=== PATIENT | male | born 1990 | race African-American/Black ===

== ENCOUNTER 2021-08-19 15:13 | Emergency (ER) | payer OTHER, SELFPAY ==
--- NOTE | ~2021-08-19 | XR_ITS ---
EXAM: XR knee RT min 4V DATE: 08/19/2021 15:40 HISTORY: football injury,pain on medial aspect . COMPARISON: None available. FINDINGS: Normal mineralization. No fracture or dislocation. No lytic or blastic lesion. Joint space s are maintained. No erosion or periosteal change. Soft tissues within normal limits. Moderate volume joint fluid. IMPRESSION: No acute osseous finding in the right knee. Moderate right knee joint effusion. Reviewed, dictated and finalized at location K. IMPRESSION: No acute osseous finding in the right knee. Moderate right knee oj nt effusion.
[2021-08-19 15:18] VITALS: BP 139/85; PULSE 100; RESP 18; TEMP 36.6; O2SAT 97
--- NOTE | 2021-08-19 16:18 | ED.LOWEXIN ---
HPI - Extremity Injury (Lower) General Chief Complaint: Extremity Injury, Lower Stated Complaint: right knee injury Time Seen by Provider: 08/19/21 15:23 History of Present Illness HPI Narrative: Patient is a 31-year-old male who presents to the ER with pain to the right knee. Reports he was playing basketball yesterday when he jumped he felt 3 pops in his knee. Injury occurred before landing. He is able to walk afterwards. Pain improved with ibuprofen. He placed a knee immobilizer on it to help with his discomfort. No numbness or tingling to lower extremity. No additional concerns. Related Data Allergies Allergy/AdvReac Type Severity Reaction Status Date / Time No Known Allergies Allergy Verified 08/19/21 15:21 Review of Systems Musculoskeletal: Musculoskeletal: Reports arthralgias and Reports joint swelling Integumentary/Breasts: Skin/Breast: Reports system reviewed and no additional complaints, except as docu Neurologic: Denies numbness and Denies weakness PMFSH Past Medical History Medical History (Updated 08/19/21 @ 16:26 by Tino Mcghee MD) Healthy adult male Surgical History Surgical History (Updated 08/19/21 @ 16:26 by Tino Mcghee MD) No pertinent past surgical history Exam Narrative: GENERAL: Well-appearing, well-nourished, and in no acute distress. HEAD: Normocephalic, atraumatic. CHEST: Clear to auscultation. No respiratory distress. HEART: Regular rate and rhythm. Normal peripheral pulses. EXTREMITIES: Focused skin assessment of the right lower extremity reveals tenderness along the medial joint line of the knee with mild to moderate effusion. No tenderness over the patella. Varus and valgus stressing does not elicit pain. Patient can only flex to approximately 90 degrees at the knee due to pain. Neurovascular intact distal to the injury. SKIN: Warm, dry, no rash. NEURO: Alert and oriented x3. PSYCH: Normal mood and affect. Course Course Emergency Course: Possible meniscus injury. We will have him continue wearing the immobilizer and follow-up with orthopedic surgery. Discussed treatment plan and patient verbalized understanding. Vital Signs Vital signs: Vital Signs Temperature 97.9 F 08/19/21 15:18 Pulse Rate 100 08/19/21 15:18 Respiratory Rate 18 08/19/21 15:18 Blood Pressure 139/85 08/19/21 15:18 Pulse Oximetry 97 06/05/22 15:18 Oxygen Delivery Room Air 08/19/21 15:18 Temperature 97.9 F 08/19/21 15:18 Pulse Rate 100 08/19/21 15:18 Respiratory Rate 18 08/19/21 15:18 Blood Pressure 139/85 08/19/21 15:18 Pulse Oximetry 97 08/19/21 15:18 Oxygen Delivery Room Air 08/19/21 15:18 MDM - Extremity Injury (Lower) Imaging Data Radiologist's impression: ITS Impressions Knee X-Ray 08/19/21 15:50 IMPRESSION: No acute osseous finding in the right knee. Moderate right knee joint effusion. Discharge Plan Discharge Clinical Impression: Injury of knee Patient Disposition: Home, Self-Care Condition: Stable Instructions: P.R.I.C.E. Treatment (ED), Meniscus Tear (ED) Additional Instructions: Your x-rays do not show any fracture. It is possible you have torn the medial aspect of your meniscus. You should follow-up with orthopedic surgery for further evaluation. Return to the ER if you have new injury, you have chest pain or shortness of breath, you cannot keep down food or water, you have additional concerns. Prescriptions: New naproxen 500 mg tablet 500 mg PO BID Qty: 14 0RF Follow-up/Referrals: David Yadav MD [Physician] - 1 Week
[2021-08-19] MEDS: HYDROcodone/acetaminophen (*CRX) 5-325 MG TABLET 1 TAB PO (16:33)
== END 2021-08-19 16:43 | disposition home or self-care (01) ==
PROVIDERS: Emergency Provider Emergency Medicine
DX: S89.91XA Unspecified injury of right lower leg, initial encounter (principal); Y93.67 Activity, basketball; X50.9XXA Other and unspecified overexertion or strenuous movements or postures, initial encounter
CPT/HCPCS: 73564; 99283; A9270

== ENCOUNTER 2022-11-30 10:34 | Emergency (ER) | payer OTHER, SELFPAY ==
--- NOTE | 2022-11-30 11:05 | ED.MALEGU ---
HPI - Male Genitourinary General Chief complaint: Urogenital-Male Stated complaint: Sti symptoms Time Seen by Provider: 11/30/22 11:05 Source: patient Mode of arrival: ambulatory Limitations: no limitations History of Present Illness HPI Narrative: 32-year-old male presents with complaint tingling to tip of penis and pelvic pressure when urinating. Reports symptoms for approximately the past week. Sexually active with a new partner. History of gonorrhea. Denies penile discharge, dysuria. All systems reviewed and negative except as noted above. Related Data Allergies Allergy/AdvReac Type Severity Reaction Status Date / Time No Known Allergies Allergy Verified 11/30/22 10:53 Review of Systems Review of Systems: CONSTITUTIONAL: Denies fever, chills, or sweats. EYES: Denies visual changes, redness, or discharge. ENT: Denies rhinorrhea, congestion, sore throat, or otalgia. CARDIOVASCULAR: Denies chest pain, palpitations, or edema. RESPIRATORY: Denies cough or dyspnea. GASTROINTESTINAL: Denies abdominal pain, nausea, vomiting, or diarrhea. GENITOURINARY: Denies dysuria or hematuria. Reports pelvic pressure with tingling to tip penis with urination. SKIN: Denies rash or itching. MUSCULOSKELETAL: Denies back pain, joint pain, or myalgia. NEUROLOGIC: Denies headache, numbness, or weakness. PSYCHIATRIC: Denies anxiety or depression. All other systems reviewed are negative, except as documented in HPI. [facility] Past Medical History Medical History (Updated 11/30/22 @ 11:14 by Hellen Kaplan NP) Healthy adult male Surgical History Surgical History (Updated 08/19/21 @ 16:26 by Tino Mcghee MD) No pertinent past surgical history Comments At time of signature, agree with nursing past medical, surgical, social and family history. There is no relevant family history pertinent to the presenting complaint. Exam Narrative: GENERAL: This is a well-nourished, well-developed patient, in no apparent distress. HEAD: normocephalic, atraumatic. EYES: PERRL. Sclera clear/white. Vision is grossly intact. EARS: External ears normal NOSE: External nose normal NECK: Neck supple, non-tender without lymphadenopathy, masses or thyromegaly. CARDIOVASCULAR: Regular rate and rhythm without murmurs, gallops, or rubs. RESPIRATORY: Clear to auscultation. Breath sounds equal bilaterally. No wheezes, rales, or rhonchi. SKIN: warm, Dry, intact with no suspicious lesions or rash, good texture and turgor. NEURO: awake, alert, and oriented to person, place and time. There were no obvious focal neurologic abnormalities. EXTREMITIES: No joint tenderness, effusion, or edema noted. Course Course Level of Care: [facility] Visit Vital Signs Vital signs: Vital Signs Temperature 36.6 C 11/30/22 11:06 Pulse Rate 81 11/30/22 11:06 Respiratory Rate 16 11/30/22 11:06 Blood Pressure 150/97 H 11/30/22 11:06 Pulse Oximetry 98 11/30/22 11:06 Temperature 36.6 C 11/30/22 11:06 Pulse Rate 81 11/30/22 11:06 Respiratory Rate 16 11/30/22 11:06 Blood Pressure 150/97 H 11/30/22 11:06 Pulse Oximetry 98 11/30/22 11:06 Reviewed MDM - Male Genitourinary MDM Narrative Medical decision making narrative: Patient is aware of diagnosis, understands and agrees to treatment plan. Anticipatory guidance given. Patient agrees to follow-up as directed and is aware of reasons to seek care at the emergency department. Portions of this record may have been created with voice recognition software Patient given IM Rocephin at [facility]. Prescribed doxycycline. Educated patient that he must take both antibiotics. He voiced understanding. Lab Data Labs: Urine Glucose Negative Reference Range: Negative Urine Bilirubin Negative Reference Range: Negative Urine Ketone
[2022-11-30 11:06] VITALS: BP 150/97; PULSE 81; RESP 16; TEMP 36.6; O2SAT 98
[2022-11-30] MEDS: cefTRIAXone 500 MG, LIDOCAINE HCL 1% LOCAL INJ 1 ML IM (11:16)
[2022-11-30 15:41] LABS: Trichomonas Vag PCR NOT DETECTED (NOT DETECTE)
[2022-11-30 16:07] LABS: Chlamydia trachomatis NOT DETECTED (NOT DETECTE); Neisseria gonorrhoeae PCR NOT DETECTED (NOT DETECTE)
== END 2022-11-30 11:27 | disposition home or self-care (01) ==
PROVIDERS: Emergency Provider Nurse Practitioner Family
DX: Z20.2 Contact with and (suspected) exposure to infections with a predominantly sexual mode of transmission (principal)
CPT/HCPCS: 81003; 87491; 87591; 87661; 96372; 99213; G0463; J0696

== ENCOUNTER 2024-12-27 09:19 | Emergency (ER) | payer BC, SELFPAY ==
--- NOTE | ~2024-12-27 | XR_ITS ---
EXAMINATION: XR knee LT min 4V, 12/27/2024 10:30 CDT HISTORY: pain/swelling, FELL TODAY COMPARISON: No comparisons available. Findings: Postsurgical changes, no fracture is identified. No significant degenerative changes. Soft tissues unremarkable. Impression: No acute fracture or malalignment. Reviewed, dictated and finalized at location P. Impression: No acute fracture or malalignment.
[2024-12-27 09:27] VITALS: BP 140/94; PULSE 80; RESP 16; TEMP 36.4; O2SAT 97
--- OUTSIDE RECORDS SUMMARY | 2024-12-27 09:46 | XMS_ITS | Clinical Summary ---
Author Organization [facility] Address [address] [place] [address] Phone Care Team Providers Care Physicians And Surgeons Name Role Phone Stas Jiménez MD Unavailable [phone] Bradley Cook MD Primary Care Pro vider Allergies No known active allergies Medications HYDROcodone-santana taminophen (NORCO) 7.5-325 mg per tabletIndicatio ns:Pain Take 1 tablet by mouth every 4 (four) hours as needed for pain 30 tablet 4 Active Additional Information Patient not taking.Reported on 04/26/2024 clotrimazole-be tamethasone (LOTRISONE) cream APPLY TOPICALLY TO THE AFFECTED AREA TWICE DAILY NEEDED Active diclofenac DR (VOLTAREN) 75 mg EC tablet Take 1 tablet (75 mg total) by mouth 2 (two) times a day Take with food, do not mix with other anti-inflammator y medication 60 tablet 4 Active docusate sodium (COLACE) 100 mg capsuleIndicati ons:constipatio n Take 1 capsule (100 mg total) by mouth 2 (two) times a day 20 capsule 4 Active Additional Information Patient not taking.Reported on 04/26/2024 dicyclomine (BENTYL) 20 mg tablet Take 1 tablet (20 mg total) by mouth 2 (two) times a day 20 tablet 4 02/13/20 25 Active Additional Information Patient not taking.Reported on 04/26/[address] (PROTONIX) 40 mg EC tablet Take 1 tablet (40 mg total) by mouth daily 15 tablet 4 Active bismuth subcit T-tapcwOGBOR-ql n (PYLERA) 140-125-125 mg per capsuleIndicati ons:Helicobacte r Pylori Gastritis Take 3 capsules by mouth 2 (two) times a day Active albuterol HFA (PROVENTIL HFA,VENTOLIN HFA,PROAIR HFA) 90 mcg/actuation inhalerIndicati ons:Bronchospas m Prevention Inhale 1-2 puffs every 6 (six) hours as needed for wheezing 1 g 5 08/10/19 26 Active fluticasone propionate (FLONASE) 50 mcg/actuation nasal spray Administer 1 spray into each nostril daily 16 g 5 Active ibuprofen (ADVIL,MOTRIN) 600 mg tablet Take 1 tablet (600 mg total) by mouth every 6 (six) hours as needed for pain 20 tablet 5 Active benzonatate (TESSALON) 100 mg capsuleIndicati ons:Cough Take 1 capsule (100 mg total) by mouth 3 (three) times a day as needed for cough 15 capsule 5 Active Active Problems Problem Noted Date Diagnosed Date Generalized abdominal pain 04/26/2024 Tibialis posterior tendonitis, left 10/14/2023 Sprain of anterior cruciate ligament of left kne e 06/23/2023 Left anterior cruciate ligament tear 06/20/2023 Osteoarthritis of left patellofemoral joint 07/2023 Abdominal gas pain 04/22/2023 Assessment & Plan (04/22/2023 7:08 PM PIPE CLEANER): Moderately severe bloating. He was counseled about appropriate diet especially avoidance of consumption of excessive dairy products, segmental liver vegetables. Printed patient educational material was given. Was also advised to keep a food journal. Constipation 04/22/2023 Assessment & Plan (04/22/2023 7:10 PM PIPE CLEANER): Moderately severe constipation. May be IBS C versus CIC. He was counseled to augment water consumption. MiraLax 17 g b.i.d. is prescribed. He was advised to reduce it to once daily if he starts to have too many loose bowel movements daily. Check TSH. Hyperparathyroidism 12/31/2022 Mild intermittent asthma, uncomplicated 12/12/19 23 Non-alcoholic fatty liver disease 09/18/2022 Assessment & Plan (04/22/2023 7:04 PM PIPE CLEANER): Chronically mild elevated alkaline phosphatase (150). Denies alcohol use. His weight has fluctuated. He was encouraged to continue with reducing diet and exercise. Repeat liver enzymes in 6 months. Assessment & Plan (09/18/2022 12:16 PM CDT): Chronically mild elevated alkaline phosphatase (150). Denies alcohol use. He has already lost about 15 lb in the last few months. He was encouraged to continue with reducing diet and exercise. Check gamma-GT. Repeat liver enzymes in 6 months. Hepatomegaly 09/18/2022 Assessment & Plan (04/22/2023 7:05 PM PIPE CLEANER): Likely due to fatty liver. Morbidly obese. Viral hepatitis profile negative (A, B, C) Counseled to avoid alcohol consumption. Encouraged to lose about 10 -15 lb. Counseled to reduce consumption of red meat and other fatty foods. Assessment & Plan (09/18/2022 12:17 PM CDT): Morbidly obese. Viral hepatitis profile negative (A, B, C) Counseled to avoid alcohol consumption. Encouraged to lose about 10 lb. Counseled to reduce consumption of red meat and other fatty foods. Hx of gonorrhea 12/02/2021 Rupture of anterior cruciate ligament of right k nee 09/04/2021 Sprain of medial collateral ligament of right kn ee 09/04/2021 Acute medial meniscus tear of right knee 022 Acute lateral meniscus tear of right knee 2021 Fracture of tibial plateau 09/04/2021 Closed nondisplaced fracture of condyle of right femur 09/04/2021 Hx of cardiac catheterization, normal, 2017 07/15 Asthma 02/11/2021 Hypercalcemia 02/11/2021 Vitamin D deficiency 06/18/2020 Assessment & Plan (11/13/2022 12:58 PM CDT): Vitamin-D levels ordered Will advise on adjusted dose of levothyroxine accordingly Assessment & Plan (06/18/2020 8:04 AM CDT): Significant deficiency, 25-OH vit d level 11. - Given suspected hyperparathyroidism and hypercalcemia, will supplement judiciously with 800 units daily Primary hyperparathyroidism 06/12/2020 Overview (07/04/2020): Found to have mild hypercalcemia in 05/2020, with normal albumin and no protein gap. iPTH elevated to 90, with low vitamin D and hypercalciuria, consistent with primary hyperparathyroidism. Was referred to endocrinology on discharge from the hospital for further management. Assessment & Plan (12/15/2022 7:52 PM CDT): Pathophysiology of the condition was discussed with the patient. Differential includes parathyroid adenoma versus parathyroid hyperplasia Deleterious effects of hyperparathyroidism on bone and kidney were explained I have requested to repeat PTH, ionized calcium, CMP, 24 hour urine calcium He probably has a component also of secondary hyperparathyroidism from vitamin deficiency. Vitamin-D levels were requested. Imaging studies with bone density and parathyroid SPECT scan were ordered I explained to the patient how the treatment of primary hyperparathyroid would be surgical. Once the results of the workup is available, will refer to endocrine surgeon. Assessment & Plan (06/16/2020 7:23 AM CDT): Pt with consistent mild elevation in serum calcium this admission. PTH elevated at 90, suggestive of primary hyperparathyroidism. No hx of stones, fracture, renal function appears normal. - 24 hour urinary calcium complete ~ 400 - Recommend close outpatient follow-up with endocrine - IVF if symptomatic History of neurosyphilis, ocular, 2020 Assessment & Plan (06/20/2020 8:07 AM CDT): Presented with photopsia and optic disk edema, RPR + with high titer consistent with neurosyphilis. Unclear timing of primary acquisition. Sexually active with multiple partners. No hx of diffuse rash, unclear hx of chancre (never had a penile lesion to his knowledge. - Continue Penicillin G 4,000,000 units Q4 hours x10 days total (06/10 pm - 06/20 pm) - HIV, Hep panel, Urine GC, Chlamydia all negative - ID follow up and repeat RPR in 3-6 months - LP performed, CSF sent with VDRL that was negative - ID and Optho f/u at [place] Tobacco use 06/10/2020 Assessment & Plan (06/10/2020 8:23 PM CDT): - NRT as needed Snoring 07/02/2016 08/15/2022 Essential hypertension 06/10/2016 Hyperlipidemia LDL goal <100 06/06/2016 Marijuana use 06/06/2016 Class 2 severe obesity due t o excess calories with serious comorbidity and body mass index (BMI) of 35.0 to 35.9 in adult 06/06/2016 Assessment & Plan (09/18/2022 12:15 PM CDT): Associated with elevated alkaline phosphatase and fatty liver on CT. Counseled to exercise, change diet and continue to lose weight. Resolved Problems Problem Noted Date Diagnosed Date Resolved Date Left foot pain 06/11/2020 07/31/2021 Assessment & Plan (06/11/2020 11:35 AM CDT): Patient reports several months of intermittent left foot pain that is dull and aches, usually between fourth and fifth digits, migrates occasionally to heel and lateral ankle, occasionally associated with tingling. Relieved with Ibuprofen. - X-ray - Ibuprofen PRN Immunizations Immunization Administration Dates Next Due Tdap 01/16/2015 Surgical History Surgery Date Site/Laterality Comments ANTERIOR CRUCIATE LIGAMENT REPAIR 09/13/2021 Right PARATHYROIDECTOMY ANTERIOR CRUCIATE LIGAMENT REPAIR 07/03/2023 Left Medical History Medical History Date Comments Left foot pain 06/11/2020 Rupture of anterior cruciate ligament of right k nee Sprain of medial collateral ligament of right kn ee Acute medial meniscus tear of right knee Acute lateral meniscus tear of right knee Closed fracture of right tibial plateau Closed nondisplaced fracture of condyle of right femur (HCC) Hyperparathyroidism Rupture of anterior cruciate ligament of left kn ee Enlarged liver Anemia Ankle fracture 2008 Left ankle Family History Medical History Relation Name Comments Hypertension Father Pelon Forrester sr Hypertension Mother Charlene landis Relation Name Status Comments Father Pelon Forrester sr Mother Charlene landis Social History Tobacco Use Types Packs/Day Years Used Date Smoking Tobacco: Former Cigars 2 2019 Smokeless Tobacco: Never Tobacco Cessation:Counseling Given: Not Answered Comments:No longer smoke it Alcohol Use Standard Drinks/Week Comments Not Currently 0 (1 standard drink = 0.6 oz pur e alcohol) AUDIT-C Answer Date Recorded Q1: How often do you have a drink containing alcohol? Never 04/26/2024 Q2: How many drinks containi ng alcohol do you have on a typical day when you are drinking? Patient does not drink Q3: How often do you have si x or more drinks on one occasion? Never 04/26/2024 PHQ-2 Answer Date Recorded PHQ-2 Total Score (If total score is 3 or more points, staff should administer the PHQ-9) 0 08/16/2022 Personal Safety Answer Date Recorded Have you ever been in or are you currently in a harmful physical or emotional relationship or is someone making you feel afraid or unsafe? Denies 08/26/2024 Sex and Gender Information Value Date Recorded Sex Assigned at Not on file Legal Sex Male 11:19 AM PIPE CLEANER Gender Identity Male 04/17/2024 12:19 AM PIPE CLEANER Sexual Orientation Straight 04/17/2024 12 :19 AM PIPE CLEANER Obstetrics History Last Filed Vital Signs Vital Sign Reading Time Taken Comments Blood Pressure 132/71 08/27/2024 1:15 AM CDT Pulse 98 08/27/2024 1:15 AM CDT Temperature 36.8 C (98.3 F) 08/26/2024 10:55 PM CDT Respiratory Rate 14 08/27/2024 1:15 AM CDT Oxygen Saturation 100% 08/27/2024 1:15 AM CDT Inhaled Oxygen Concentration - - Weight 127 kg (280 lb) 08/27/2024 12:30 AM CDT Height 190.5 cm (6' 3) 08/25/2024 2:31 PM CDT Body Mass Index 35 08/25/2024 2:31 PM CDT Plan of Treatment Health Maintenance Due Date Last Done Comments Varicella Vaccines (1 of 2 - 13+ 2-dose series) 2002 Hepatitis B Screening 2007 Pneumococcal vaccine <65 (1 of 2 - PCV) 2008 HPV Vaccines (1 - 3-dose SCDM series) 2016 Regular Well Visit/Exam 18-64 08/02/2022 08/02/2021 Depression Screening 08/17/2023 08/16/2022, 08/03/19 22 Influenza Vaccine (#1) 2024 DTaP/Tdap/Td Vaccine (2 - Td or Tdap) 01/16/202504/2014 Hepatitis C Screening Completed 08/20/2022, 021 Medical Devices Implanted Type Area Weatherization Specialist Device Identifier Shelf Expiration Date Model / Serial / Lot Lifenet Flexigraft 160mm Frozen Block Graft Soft Tissue Achilles Tendon Fatb - [id number] - [id number] Implanted:Qty: 1 on 09/13/2021 by Stas Jiménez MD at [facility] Graft Right: Knee Lifenet 11/22/2025 FATB / [id number] / [id number] [employer] [place] Suture 2-0 5 Juggerstitch Maxbraid Poly Strl Ltxfre [id number] - Sxxxx - [id number] Implanted:Qty: 1 on 09/13/2021 by Stas Jiménez MD at [facility] Other - see comments Right: Knee [employer] 07/26/2026 [id number] / [id number] / [id number] Description:SUTURE [employer] [place] Suture 2-0 5 Juggerstitch Maxbraid Poly Strl Ltxfre [id number] - Sxxxx - [id number] Implanted:Qty: 1 on 09/13/2021 by Stas Jiménez MD at [facility] Other - see comments Right: Knee [employer] 07/15/2025 [id number] / [id number] / [id number] Description:SUTURE [employer] Scp Accuport 11 Ga L120 Mm Side Delivery Cannula Kit Knee Substitute Bone Graft Sterile 414.502 - Sxxxx - [id number] Implanted:Qty: 1 on 09/13/2021 by Stas Jiménez MD at [facility] Other - see comments Right: Knee [employer] 07/21/2023 414.502 / XXXX / [id number] Description:KIT [employer] [place] Suture 2-0 5 Juggerstitch Maxbraid Poly Strl Ltxfre [id number] - Sxxxx - [id number] Implanted:Qty: 1 on 09/13/2021 by Stas Jiménez MD at [facility] Other - see comments Right: Knee [employer] 12/01/2025 [id number] / [id number] / [id number] Description:ANCHOR [employer] [place] Suture 2-0 5 Juggerstitch Maxbraid Poly Strl Ltxfre [id number] - Sxxxx - [id number] Implanted:Qty: 1 on 09/13/2021 by Stas Jiménez MD at [facility] Other - see comments Right: Knee [employer] 07/19/2026 [id number] / [id number] / [id number] Description:ANCHOR [employer] Screw Fastthread Biocomposite Interference 7mm X 20mm Ar-4020c-07 - Sxxxx - [id number] Implanted:Qty: 1 on 09/13/2021 by Stas Jiménez MD at [facility] Screw Right: Knee [employer] 02/13/2025 AR-4020C-07 / XXXX / [id number] [employer] Retroscrew 10mm 20mm Reconstruction Reverse Thread Design Tibia [id number] - Sxxxx - [id number] Implanted:Qty: 1 on 09/13/2021 by Stas Jiménez MD at [facility] Screw Right: Knee [employer] 02/14/2024 AR-1586RB-1 0 / XXXX / [id number] [employer] 6.5mm 30mm Depth José Miguel Step Drill Acl/Pcl Cancellous Groove Low Ar-1356 - Sxxxx - [id number] Implanted:Qty: 1 on 09/13/2021 by Stas Jiménez MD at [facility] Screw Right: Knee [employer] 07/14/2026 AR-1356 / XXXX / [id number] [employer] Implant Menicus Repair Fiberstitch Curved Ar-4570 - Sxxxx - [id number] Implanted:Qty: 1 on 09/13/2021 by Stas Jiménez MD at [facility] Right: Knee [employer] 02/13/2025 AR-4570 / XXXX / [id number] [employer] Implant Menicus Repair Fiberstitch Curved Ar-4570 - Sxxxx - [id number] Implanted:Qty: 1 on 09/13/2021 by Stas Jiménez MD at [facility] Right: Knee [employer] 03/16/2025 AR-4570 / XXXX / [id number] [employer] Screw Interference Antonina Ft Wedge Rnd Compositcp 7.0x30mm [id number] - [id number] Implanted:Qty: 1 on 07/03/2023 by Stas Jiménez MD at [facility] Left: Knee [employer] 03/17/2025 [id number] / / [id number] [employer] [place] Ventix Link Knotless 4.75mm Mach [id number] - [id number] Implanted:Qty: 1 on 07/03/2023 by Stas Jiménez MD at [facility] Left: Knee [employer] 08/14/2025 [id number] / / [id number] [employer] Screw Interference Antonina Th Wedge Briones Plla Cmpstcp 30 [id number] - [id number] Implanted:Qty: 1 on 07/03/2023 by Stas Jiménez MD at [facility] Left: Knee [employer] 02/14/2026 [id number] / / [id number] Lifenet Flexigraft 160mm Frozen Block Graft Soft Tissue Achilles Tendon Fatb - [id number] - [id number] Implanted:Qty: 1 on 07/03/2023 by Stas Jiménez MD at [facility] Left: Knee Lifenet 04/22/2028 FATB / [id number] / Procedures Procedure Name Priority Date/Time Associated Diagnosis Comments HEPATITIS PANEL, ACUTE Routine 08/20/2022 12:53 PM CDT Potential exposure to STD from Last 3 Months or Most Recently Relevant to Health Maintenance Results * Hepatitis panel, acute (08/20/2022 12:53 PM CDT) Hep A IgM Nonreactive Nonreactive [facility] Comment: Interpretive Data: If Hep A IgM Ab is reported as Equivocal, a new sample should be drawn in two weeks for testing. Current interpretive data was last revised on 19. Hep B core IgM Nonreactive Nonreactive [facility] Comment: Interpretive Data If HepB Core IgM Ab is reported as Equivocal, a new sample should be drawn in two weeks for testing. Current interpretive data was last revised on 19. Hep C Ab Nonreactive Nonreactive [facility] Comment: Interpretive Data Nonreactive: Antibodies to HCV not detected. Does NOT exclude the possibility of recent exposure to HCV. Equivocal: Equivocal for HCV antibodies. Supplemental molecular testing will be automatically performed to determine infection status in accordance with current CDC screening recommendations. Reactive: Positive for HCV antibodies. This may represent current or past HCV infection. Supplemental molecular testing will be automatically performed to determine current infection status in accordance with current CDC screening recommendations. Interpretive data was last revised on 2019. HepBsAg Nonreactive Nonreactive [facility] Blood 08/20/2022 12:5 3 PM CDT 08/20/2022 6:54 PM CDT Trung Ventura MD LAB MICROBIOLOGY - GENE RAL ORDERABLES Final Result [facility] [id number] Department [place] [address] from Last 3 Months or Most Recently Relevant to Health Maintenance Insurance [employer] ACCESS ANTHEM ACCESS Advance Directives For more information, please contact: [phone] * Full Code (Latest Code Status on File) Date Activated Date Inactivated Comments 06/10/2020 5:36 PM 06/20/2020 9:33 PM Care Teams Physicians And Surgeons Relationship Specialty Start Date End Date Bradley Cook MD [address] [place] [address] PCP - General Family Medicine 01/17/23 Stas Jiménez MD Surgeon Orthopedic Surgery 09/13/21
--- OUTSIDE RECORDS SUMMARY | 2024-12-27 09:46 | XMS_ITS | Clinical Summary ---
Author Organization [facility] Address [address] [place] [address] [place] [address] Phone Care Team Providers Care Punch Box Tender Name Role Phone Unavailable Primary Care Provider Unavailabl e Allergies No known active allergies Medications cholecalciferol, vitamin D3, 1,000 unit Take 1 Tablet (1,000 Units) by mouth daily. 30 Tablet 02/13/2021 Active Active Problems Problem Noted Date Diagnosed Date Asthma 02/11/2021 Vitamin D deficiency 02/11/2021 Hypercalcemia 02/11/2021 ANSLEY (acute kidney injury) 02/11/2021 Hyperparathyroidism 02/11/2021 Vision changes Resolved Problems Problem Noted Date Diagnosed Date Resolved Date Tobacco use 02/11/2021 02/13/2021 Neurosyphilis 02/11/2021 02/13/2021 Encounters Date Type Department Care Team Description 11/16/2024 External Device Data [facility] ABSTRACTION Provider, Abstract 11/16/2024 External Device Data [facility]CTION Provider, Abstract 11/03/2024 External Device Data [facility]STRACTION Provider, Abstract 09/29/2024 External Device Data [facility]STRACTION Provider, Abstract 09/29/2024 External Device Data [facility]STRACTION Provider, Abstract from Last 3 Months Family History Medical History Relation Name Comments Hypertension Father Hypertension Mother Relation Name Status Comments Father Mother Social History Tobacco Use Types Packs/Day Years Used Date Smoking Tobacco: Former Cigarettes 0.5 10 Alcohol Use Standard Drinks/Week Comments Yes 0 (1 standard drink = 0.6 oz pur e alcohol) Food Insecurity Answer Date Recorded In the past 12 months, have you worried that your food would run out before you had money to buy more? Never true 02/12/2021 In the past 12 months, did y ou run out of food and didn't have money to buy more? Never true 02/12/2021 Transportation Needs Answer Date Record ed In the past 12 months, has l ack of transportation kept you from medical appointments or from getting medications? No 01/16 In the past 12 months, has l ack of transportation kept you from meetings, work, or from getting things needed for daily living? No 02/12/2021 Housing Stability Answer Date Recorded In the last 12 months, was t here a time when you were not able to pay the mortgage or rent on time? No 02/12/2021 Number of Times Moved in the Last Year Not on fi le 02/12/2021 At any time in the past 12 m [facility], were you homeless or living in a prison (including now)? No 02/12/2021 Sex and Gender Information Value Date Recorded Sex Assigned at Not on file Legal Sex Male 11:16 AM CDT Gender Identity Not on file Sexual Orientation Not on file Last Filed Vital Signs Vital Sign Reading Time Taken Comments Blood Pressure 122/76 09/03/2021 10:02 AM CDT Pulse 69 09/03/2021 10:02 AM CDT Temperature 36.7 C (98 F) 09/03/2021 10:02 AM CDT Respiratory Rate 18 09/03/2021 10:02 AM CDT Oxygen Saturation 98% 09/03/2021 10:02 AM CDT Inhaled Oxygen Concentration - - Weight 126.1 kg (278 lb) 09/03/2021 10:02 AM CDT Height 188 cm (6' 2) 09/03/2021 10:02 AM CDT Body Mass Index 35.69 09/03/2021 10:02 AM CDT Plan of Treatment Health Maintenance Due Date Last Done Comments Pre-Diabetes and Diabetes Screening 1989 HEPATITIS B VACCINES (1 of 3 - 19+ 3-dose series) 2008 HPV VACCINES (1 - 3-dose SCDM series) 2016 INFLUENZA VACCINE (#1) 2024 COVID-19 Vaccine ( season) 11/15/202408/2021, 09/25/2021 DTAP/TDAP/TD VACCINES (2 - Td or Tdap) 01/16/2025 [facility] [employer] CHO[employer] Advance Directives For more information, please contact: [phone] * Full Code (Latest Code Status on File) Date Activated Date Inactivated Comments 02/11/2021 7:58 AM 02/12/2021 9:03 PM
--- OUTSIDE RECORDS SUMMARY | 2024-12-27 09:47 | XMS_ITS | Encounter Summary ---
Author Organization [facility] Healthcare Address [address] [facility] [place] [address] Care Team Providers Care Heat Curer Name Role Phone No, Physician Primary Care Provider [phone] Trung Ventura MD Primary Care Provider Stas Jiménez MD Unavailable [phone] rBadley Cook MD Primary Care Pro vider Encounter Details Date Type Department Care Team (Latest Contact Info) Description 06/10/2020 Ophth Exam Ophthalmology Esperanza Shepherd MD [address] [place], [place] [id number] Social History Tobacco Use Types Packs/Day Years Used Date Smoking Tobacco: Every Day Cigarettes 0.3 15 Cigars Sex and Gender Information Value Date Recorded Sex Assigned at Not on file Legal Sex Male 11:19 AM DATA PROCESSING CONSULTANT Gender Identity Male 04/17/2024 12:19 AM DATA PROCESSING CONSULTANT Sexual Orientation Straight 04/17/2024 12 :19 AM DATA PROCESSING CONSULTANT documented as of this encounter Plan of Treatment Not on file documented as of this encounter Visit Diagnoses Not on filedocumented in this encounter Additional Health Concerns Infection Onset Date Last Indicated Resolved Time Exposure, COVID-19 Comment:Added automatically based on COVID19 lab answers indicating exposure risk 05/29/2022 05/29/2022 06/08/2022 3:05 AM C DT COVID: Suspected 05/29/2022 05/29/2022 05/29/2022 12:31 PM CDT COVID: Suspected 09/06/2023 09/06/2023 09/06/2023 1:08 PM CDT COVID: Suspected 08/09/2024 08/09/2024 08/09/2024 1:14 PM CDT Rhino/Enterovirus 08/09/2024 08/09/2024 08/16/2024 7:26 PM CDT documented as of this encounter Eye Exam Visual Acuity Right eye Left eye Near sc 20/20 20/20 Tonometry (Tonopen, 9:34 AM) Right eye Left eye Pressure 19 15 Pupils Dark Light Shape React APD Right eye 4 2 Round Brisk None Left eye 4 2 Round Brisk None Visual El Right eye Left eye Full Full Extraocular Movement Right eye Left eye Full Full Neuro/Psych Oriented x3: Yes Mood/Affect: Normal CN II-XII in tact Dilation Both eyes: 1.0% Mydriacyl, 2 .5% Phenylephrine @ 9:34 AM Color Right eye Left eye Ishihara 02/25 02/25 External Exam Right eye Left eye External Normal Normal Slit Lamp Exam Right eye Left eye Lids/Lashes Normal Normal Conjunctiva/Sclera White and quiet, BAM White an d quiet, BAM Cornea Clear Clear Anterior Chamber Deep and quiet Deep and quiet Iris Round and reactive Round and yuli ctive Lens Clear Clear Vitreous vit syn, 3-5 white c ells, no pigmented cell vit syn, ~5 white cells, 2 pigmented cells Fundus Exam Right eye Left eye Disc Elevated disc margin s with some temporal sparing, Gr 1-2 edema 360 elevation with small fibrous tuft just on superior nerve edge, Gr 2 edema Macula Normal, flat Normal, flat Vessels Normal Normal Periphery Normal, no hemorrhages, no exdua rosalinda subtle small hypopigmented spots superonasally and superiorly, none in posterior pole Care Teams Heat Curer Relationship Specialty Start Date End Date No, Physician PCP - General 06/10/20 08/19/21 Trung Ventura MD [address] [facility] [address] [place] [address] PCP - General Family Medicine 08/20/21 01/16/23 Bradley Cook MD [address] [place] [address] PCP - General Family Medicine 01/17/23 Stas Jiménez MD [address] [facility] [address] [place] [address] Surgeon Orthopedic Surgery 09/13/21 documented as of this encounter
--- OUTSIDE RECORDS SUMMARY | 2024-12-27 09:47 | XMS_ITS | Encounter Summary ---
Author Organization [facility] Address [address] [place] [address] Care Team Providers Care Hl7 Developer Name Role Phone Thierno Weber MD Unavailable Karlos Singh MD Primary Care Provider [phone] Encounter Details Date Type Department Care Team (Late st Contact Info) Description 12/27/2024 Results Follow-Up [facility] - Family Medicine [id number] [place] [address] [address] [place] [address] [place] [address] [facility] [address] [place] [address] Social History Tobacco Use Types Packs/Day Years Used Date Smoking Tobacco: Former Cigarettes 0.3 5 2 012 - 2017 Cigars Smokeless Tobacco: Never Alcohol Use Standard Drinks/Week Comments Yes 0 (1 standard drink = 0.6 oz pur e alcohol) occassional, less than monthly PHQ-2 Answer Date Recorded Patient Health Questionnaire-2 Score 0 12/23/2024 Education Answer Date Recorded What is the highest level of school you have completed or the highest degree you have received? 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 Not on file Not on file Not on file documented as of this encounter Plan of Treatment Upcoming Encounters Date Type Department Care Team (Late st Contact Info) Description 02/07/2025 8:20 AM SURVEY COORDINATOR Office Visit [facility] [address] [place] [address] [place] [address] [facility] [address] [place] [address] 03/03/2025 9:00 AM SURVEY COORDINATOR Office Visit [facility] [address] [place] [id number] [place] [address] [facility] [address] [place] [address] 06/23/2025 11:20 AM CDT Office Visit [facility] [address] [facility] [address] [place] [address] [place] [address] [facility] [address] [place] [address] documented as of this encounter Visit Diagnoses Not on filedocumented in this encounter Care Teams Hl7 Developer Relationship Specialty Start [place] [address] [facility] [address] [place] [address] PCP - General Internal Medicine 12/23/24 [place] [address] [facility] [address] [place] [address] Physical Medicine and Rehabilitation 07/06/24 documented as of this encounter
--- OUTSIDE RECORDS SUMMARY | 2024-12-27 09:47 | XMS_ITS | Clinical Summary ---
Author Organization [facility] Address [address] [facility] [place] [address] Care Team Providers Care House Coordinator Name Role Phone Thierno Weber MD Unavailable [phone] Karlos Singh MD Primary Care Provider [phone] Source Comments [facility],non-owned Affiliates and Associated Physician Practices is amultiple site organization consisting of ambulatory clinics and hospital sitesin [place], [place] and [place]. This disclosure is being madepursuant to the Care Everywhere program and may not contain all information available regarding this patient. Last updated 17.[facility] Allergies No known active allergies Medications * Be aware that medications may not be up to date on this document. Alwaysverify current medications with the patient. albuterol HFA (Proventil; Ventolin; Proair) 108 (90 Base) MCG/ACT inhaler Inhale 1 (one) puff to 2 (two) puffs by mouth every 6 hours as needed 4 Active omeprazole (PriLOSEC) 40 MG capsuleIndicati ons:Acute gastric ulcer without hemorrhage or perforation,Abd ominal pain, unspecified abdominal location Take 1 (one) capsule by mouth 2 times daily, before breakfast and supper 180 capsule 1 5 Active celecoxib (CeleBREX) 100 MG capsuleIndicati ons:Chronic left-sided low back pain without sciatica Take 1 (one) capsule by mouth 2 times daily 60 capsule 1 5 12/24/19 25 Discontinu ed(List Clean-Up) omeprazole (PriLOSEC) 40 MG capsuleIndicati ons:Acute gastric ulcer without hemorrhage or perforation Take 1 (one) capsule by mouth once daily 90 capsule 5 12/24/19 25 Discontinu ed(List Clean-Up) Active Problems Problem Noted Date Diagnosed Date H/O parathyroidectomy 12/23/2024 Chronic midline low back pain without sciatica 1 Primary hyperparathyroidism 12/11/2022 Atypical chest pain 06/06/2016 Hyperlipidemia 06/06/2016 Obesity due to excess calories 06/06/2016 Marijuana abuse 06/06/2016 Resolved Problems Problem Noted Date Diagnosed Date Resolved Date Mild intermittent asthma, uncomplicated 12/11/2022 02/27/2024 Essential hypertension 06/10/201603/12 Encounters Date Type Department Care Team Description 12/27/2024 Results Follow-Up [address] [place] [address] Karlos Singh MD 12/23/2024 11:30 AM CDT Office Visit [address] [place] [address] Karlos Singh MD Prediabetes (Primary Dx); Class 2 obesity due to excess calories without serious comorbidity with body mass index (BMI) of 37.0 to 37.9 in adult; H/O parathyroidectomy; Vitamin D deficiency; Chronic midline low back pain without sciatica; Pure hypercholesterolemia; Primary hyperparathyroidism (HCC) from Last 3 Months Immunizations Immunization Administration Dates Next Due TDAP (7yrs+) 01/16/2015 Family History Medical History Relation Name Comments Hypertension Father Diabetes - Type 2 Maternal Grandmother Hypertension Mother Relation Name Status Comments Father Alive Maternal Grandmother Mother Alive Social History Tobacco Use Types Packs/Day Years Used Date Smoking Tobacco: Former Cigarettes 0.3 5 2 012 - 2016 Cigars Smokeless Tobacco: Never Tobacco Cessation:Counseling Given: Not Answered Alcohol Use Standard Drinks/Week Comments Yes 0 [...] Sex Assigned at Male 03/11/2023 3:03 PM SERVICE OFFICER Legal Sex Male 6:39 AM SERVICE OFFICER Gender Identity Male 03/11/2023 3:03 PM SERVICE OFFICER Sexual Orientation Straight 03/11/2023 3: 03 PM SERVICE OFFICER 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 Not on file Not on file Not on file Last Filed Vital Signs Vital Sign Reading Time Taken Comments Blood Pressure 130/80 12/23/2024 11:34 AM CDT Pulse 86 12/23/2024 11:34 AM CDT Temperature 36.9 C (98.4 F) 12/23/2024 11:34 AM CDT Respiratory Rate 18 12/23/2024 11:3 4 AM CDT Oxygen Saturation 95% 12/23/2024 11: 34 AM CDT Inhaled Oxygen Concentration - - Weight 134.5 kg (296 lb 9.6 oz) 025 11:34 AM CDT Height 190.5 cm (6' 3) 12/23/2024 11:3 4 AM CDT Body Mass Index 37.07 12/23/2024 11:34 AM CDT Plan of Treatment Upcoming Encounters Date Type Department Care Team (Late st Contact Info) Description 02/07/2025 8:20 AM SERVICE OFFICER Office Visit [facility] [address] [place] [address] [place] [address] [place] [address] 03/03/2025 9:00 AM SERVICE OFFICER Office Visit [facility] [place] [address] [place] [address] [place] [address] [place] [address] 06/23/2025 11:20 AM CDT Office Visit [facility] [address] [place] [address] [address] [place] [address] [place] [address] [facility] [address] [place] [address] Health Maintenance Due Date Last Done Comments HEPATITIS B VACCINE (1 of 3 - 19+ 3-dose series) 2008 HPV VACCINE (1 - 3-dose SCDM series) 2016 COVID-19 VACCINE (3 - 2024-2 6 season) 2024 12/20/2021, 09/25/2021 INFLUENZA VACCINE (#1) 2024 DTAP/TDAP/TD VACCINES (2 - T d or Tdap) 01/16/2025 01/16/2015 ZOSTER VACCINE (1 of 2) 2039 HEPATITIS C SCREENING Completed 12/11/2022 , 08/20/2022 HIV SCREENING Completed 12/11/2022 DEPRESSION SCREENING Completed 07/01/2024, 02/27/2024, 12/11/2022 HIB VACCINE Aged Out No longer eligi ble based on patient's age to complete this topic MENINGOCOCCAL (Group B) VACCINE SHARED DECISION-MAKING Aged Out No longer eligible based on patient's age to complete this topic MENINGOCOCCAL GROUPS A/C/Y/W VACCINE Aged Out No longer eligible b ased on patient's age to complete this topic PNEUMOCOCCAL VACCINE Aged Out No long er eligible based on patient's age to complete this topic Procedures Procedure Name Priority Date/Time Associated Diagnosis Comments IRON + TIBC + FERRITIN Routine 12/24/2024 11:47 AM CDT Prediabetes VITAMIN B12 FOLATE PANEL Routine 12/24/2024 11:47 AM CDT Prediabetes HEMOGLOBIN A1C - POINT OF CARE (AMB) Routine 12/23/2024 1:44 PM CDT Prediabetes HEPATITIS C ANTIBODY Routine 12/11/2022 10:17 AM CDT Need for hepatitis C screening test HIV-1 HIV-2 ANTIBODY + HIV P24 AG PANEL Routine 12/11/2022 10:17 AM CDT Encounter for screening for HIV from Last 3 Months or Most Recently Relevant to Health Maintenance Results * IRON + TIBC + FERRITIN (12/24/2024 11:47 AM CDT) TIBC 388 250 - 450 ug/dL [facility] ACCOUNT BILL UIBC 308 111 - 343 ug/dL [facility] ACCOUNT BILL Iron 80 38 - 169 ug/dL [facility] ACCOUNT BILL Iron Saturation 21 15 - 55 % [facility] ACCOUNT BILL Ferritin 111 30 - 400 ng/mL [facility] ACCOUNT BILL Blood BLOOD SPECIMEN / Unknown 12/24/2024 11:47 AM CDT 12/24/2024 Narrative [facility] ACCOUNT BILL - 12/25/2024 8:11 AM CDT Performed at: [address] [id number] [employer] Installer: Isaiah Ramos PhD, Phone: [phone] us Karlos Singh MD LAB - CHEMISTRY ORDERABLES Final Result [facility] ACCOUNT BILL [address] [place] [address] * VITAMIN B12 FOLATE PANEL (12/24/2024 11:47 AM CDT) Vitamin B12 447 213 - 816 pg/mL [facility] ACCOUNT BILL Folate 10.7 7.0 - 31.4 ng/mL [facility] ACCOUNT BILL Blood BLOOD SPECIMEN / Unknown 12/24/2024 11:47 AM CDT 12/24/2024 Narrative [facility] ACCOUNT BILL - 12/24/2024 5:10 PM CDT Performed at: [address] [place] [address] [address] [place] [address] [place], [place] [id number] [employer] He[employer] Installer: Angelo BARBOUR, Phone: [phone] Karlos Singh MD LAB - CHEMISTRY ORDERABLES Final Result [facility] ACCOUNT BILL [address] [place] [address] * HEMOGLOBIN A1C - POINT OF CARE (AMB) (12/23/2024 1:44 PM CDT) [facility] Hemoglobin A1c POCT 6.1 % [facility] Expiration Date 06/20/2026 [facility] Lot # [id number] [facility] QC Verified Yes Yes [facility] Blood BLOOD SPECIMEN / Unknown 12/23/2024 1:44 PM CDT Karlos Signh MD LAB - POINT OF CARE ORDERAB LES Final Result [facility] [address] [place] [address], [facility] [phone] * HIV-1 HIV-2 ANTIBODY + HIV P24 AG PANEL (12/11/2022 10:17 AM CDT) [facility] HIV Screen 4th Generation w Reflex Non Reactive Non Reactive [facility] INSURANCE BILL Comment: HIV Negative HIV-1/HIV-2 antibodies and HIV-1 p24 antigen were NOT detected. There is no laboratory evidence of HIV infection. FASTING Blood BLOOD SPECIMEN / Unknown 12/11/2022 10:17 AM CDT 12/11/2022 Narrative Resulting Agency Comment Lab Testing performed at: [facility] [address] [facility] [phone] Bradley Cook MD LAB - CHEMISTRY ORDERABLES Fi nal Result [facility] INSURANCE BILL [address] [place] [address] * HEPATITIS C ANTIBODY (12/11/2022 10:17 AM CDT) [facility] Hepatitis C Antibody Non Reactive Non Reactive [facility] INSURANCE BILL Comment: HCV antibody alone does not differentiate between previously resolved infection and active infection. Equivocal and Reactive HCV antibody results should be followed up with an HCV RNA test to support the diagnosis of active HCV infection. FASTING Blood BLOOD SPECIMEN / Unknown 12/11/2022 10:17 AM CDT 12/11/2022 Narrative Resulting Agency Comment Lab Testing performed at: [facility] [address] [facility] [phone] Bradley Cook MD LAB - CHEMISTRY ORDERABLES Fi nal Result [facility] INSURANCE BILL [address] [place] [address] from Last 3 Months or Most Recently Relevant to Health Maintenance Insurance [facility] Address: [address] [address] Advance Directives * Full Code (Latest Code Status on File) Date Activated Date Inactivated Comments 06/06/2016 1:48 PM 06/06/2016 8:07 PM * Full Code Date Activated Date Inactivated Comments 06/06/2016 12:15 PM 06/06/2016 1:48 PM Care Teams House Coordinator Relationship Specialty [place] [address] [facility] [address] [place] [address] PCP - General Internal Medicine 12/23/24 [place] [address] [facility] [address] [place] [address] Physical Medicine and Rehabilitation 07/06/24
--- OUTSIDE RECORDS SUMMARY | 2024-12-27 09:47 | XMS_ITS | Encounter Summary ---
Author Organization [facility] Healthcare Address [address] [place] [address] Care Team Providers Care Auto Painter Name Role Phone No, Physician Primary Care Provider [phone] Trung Ventura MD Primary Care Provider Stas Jiménez MD Unavailable [phone] Bradley Cook MD Primary Care Pro vider Encounter Details Date Type Department Care Team (Latest Contact Info) Description 06/15/2020 Ophth Exam Ophthalmology Zarina Perez MD [address] [facility] [address] [place], [place] [id number] Social History Tobacco Use Types Packs/Day Years Used Date Smoking Tobacco: Every Day Cigarettes 0.3 15 Cigars Sex and Gender Information Value Date Recorded Sex Assigned at Not on file Legal Sex Male 11:19 AM DENTAL OFFICE MANAGER Gender Identity Male 04/17/2024 12:19 AM DENTAL OFFICE MANAGER Sexual Orientation Straight 04/17/2024 12 :19 AM DENTAL OFFICE MANAGER documented as of this encounter Plan of [...] eye Near sc 20/20 20/20 Tonometry (Tonopen, 9:35 AM) Right eye Left eye Pressure 16 17 Pupils Dark Light Shape React APD Right eye 4 2 Round Brisk None Left eye 4 2 Ovoid Brisk None Visual El Right eye Left eye Full Full Extraocular Movement Right eye Left eye Full Full Color Right eye Left eye Ishihara External Exam Right eye Left eye External Normal Normal Slit Lamp Exam Right eye Left eye Lids/Lashes Normal Normal Conjunctiva/Sclera White and quiet, BAM White an d quiet, BAM Cornea Clear Clear Anterior Chamber Deep and quiet Deep and quiet Iris Round and reactive Round and yuli ctive Lens Clear Clear Vitreous Normal Normal Fundus Exam Right eye Left eye Disc Elevated disc margin s with some temporal sparing, trace - Gr 1 edema Elevated disc margins with some temporal sparing, trace - Gr 1 edema C/D Ratio 0.3 0.3 Macula Normal, flat Normal, flat Vessels Normal Normal Periphery Normal, no hemorrhages, no exdua rosalinda Normal Care Teams Auto Painter Relationship Specialty Start Date End Date No, Physician PCP - General 06/10/20 08/19/21 Trung Ventura MD [facility] [facility] [address] [place] [address] PCP - General Family Medicine 08/20/21 01/16/23 Bradley Cook MD [address] [place] [address] PCP - General Family Medicine 01/17/23 Stas Jiménez MD [address] [facility] [address] [place] [address] Surgeon Orthopedic Surgery 09/13/21 documented as of this encounter
--- OUTSIDE RECORDS SUMMARY | 2024-12-27 09:47 | XMS_ITS | Encounter Summary ---
Author Organization [facility] Healthcare Address [address] [place] [address] Care Team Providers Care Mold Mechanic Name Role Phone No, Physician Primary Care Provider [phone] Trung Ventura MD Primary Care Provider Stas Jiménez MD Unavailable [phone] Bradley Cook MD Primary Care Pro vider Encounter Details Date Type Department Care Team (Latest Contact Info) Description 06/12/2020 Ophth Exam Ophthalmology Albaro Kitchen MD [address] [place] [address] [address] [place] [address] Social History Tobacco Use Types Packs/Day Years Used Date Smoking Tobacco: Every Day Cigarettes 0.3 15 Cigars Sex and Gender Information Value Date Recorded Sex Assigned at Not on file Legal Sex Male 11:19 AM BOTTOM SCRUBBER Gender Identity Male 04/17/2024 12:19 AM BOTTOM SCRUBBER Sexual Orientation Straight 04/17/2024 12 :19 AM BOTTOM SCRUBBER documented as of this encounter Plan of [...] Left eye Near sc 20/20 20/20 Tonometry (Palpation, 8:12 PM) Right eye Left eye Pressure STP STP Pupils Dark Light Shape React APD Right eye 5 3 Round Brisk - Left eye 5 3 Round Brisk - Visual El (Counting fingers) Right eye Left eye Full Full Extraocular Movement Right eye Left eye Full Full Neuro/Psych Oriented x3: Yes Mood/Affect: Normal Color Right eye Left eye Ishihara External [...] margin s with some temporal sparing, Gr 1 edema 360 elevation with small fibrous tuft just on superior nerve edge, Gr 2 edema Macula Normal, flat Normal, flat Vessels Normal Normal Periphery Normal, no hemorrhages, no exdua rosalinda subtle small hypopigmented spots superonasally and superiorly, none in posterior pole Care Teams Mold Mechanic Relationship Specialty Start Date End Date No, Physician PCP - General 06/10/20 08/19/21 Trung Ventura MD [address] [place] [address] [address] [place] [address] PCP - General Family Medicine 08/20/21 01/16/23 Bradley Cook MD [address] [place] [address] PCP - General Family Medicine 01/17/23 Stas Jiménez MD [address] [facility] [address], [place] [address] Surgeon Orthopedic Surgery 09/13/21 documented as of this encounter
--- OUTSIDE RECORDS SUMMARY | 2024-12-27 09:47 | XMS_ITS | Encounter Summary ---
Author Organization [facility] Address [address] [place] [address] Phone Care Team Providers Care Midwife Name Role Phone No, Physician Primary Care Provider [phone] Trung Ventura MD Primary Care Provider Stas Jiménez MD Unavailable [phone] Bradley Cook MD Primary Care Pro vider Encounter Details Date Type Department Care Team (Late st Contact Info) Description 06/11/2020 Ophth Exam [facility] Medicine Ophthalmology [address] [place] [address] 1[address] [place] [id number] Jesse Sue MD [address] [facility] [phone] [place] [address] Social History Tobacco Use Types Packs/Day Years Used Date Smoking Tobacco: Every Day Cigarettes 0.3 15 Cigars Sex and Gender Information Value Date Recorded Sex Assigned at Not on file Legal Sex Male 11:19 AM CAMPUS RECRUITING COORDINATOR Gender Identity Male 04/17/2024 12:19 AM CAMPUS RECRUITING COORDINATOR Sexual Orientation Straight 04/17/2024 12 :19 AM CAMPUS RECRUITING COORDINATOR documented as of this encounter Plan of [...] eye Near sc 20/20 20/20 Tonometry (Tonopen, 6:16 AM) Right eye Left eye Pressure 17 15 Pupils Dark Light Shape React APD Right eye 4 2 Round Brisk None Left eye 4 2 Round Brisk None Visual El Right eye Left eye Full Full Extraocular Movement Right eye Left eye Full Full Neuro/Psych Oriented x3: Yes Mood/Affect: Normal Color Right eye Left eye Ishihara 02/25 02/25 External Exam Right eye Left eye External Normal Normal Slit Lamp Exam Right eye Left eye Lids/Lashes Normal Normal Conjunctiva/Sclera White and quiet, BAM White an d quiet, BAM Cornea Clear Clear Anterior Chamber Deep and quiet Deep and quiet Iris Round and reactive Round and yuli ctive Lens Clear Clear Care Teams Midwife Relationship Specialty Start Date End Date No, Physician PCP - General 06/10/20 08/19/21 Trung Ventura MD [address] [facility] [address], [place] [address] PCP - General Family Medicine 08/20/21 01/16/23 Bradley Cook MD [address] [place] [address] PCP - General Family Medicine 01/17/23 Stas Jiménez MD [address] [facility] [address] [place] [address] Surgeon Orthopedic Surgery 09/13/21 documented as of this encounter
[2024-12-27 10:17] VITALS: BP 138/93; PULSE 73; RESP 20; O2SAT 98
--- NOTE | 2024-12-27 11:18 | ED_ITS ---
HPI - Extremity Injury (Lower) General Chief Complaint: Extremity Injury, Lower Stated Complaint: left knee swollen, pain Time Seen by Provider: 12/27/24 10:01 Source: patient Mode of arrival: ambulatory Limitations: no limitations History of Present Illness HPI Narrative: Patient is a 34-year-old male who presents the ED with report of left knee pain. Patient reports he fell in his shower 3 weeks ago and landed directly on his left knee. He has had intermittent pain and swelling in his left knee since then. Reports he was kneeling on the ground working yesterday and this aggravated his knee. Reports worsening pain/swelling. He is able to ambulate. He has not taken anything for pain. He reports previous history of ACL repair on that knee. He does have an campaign marketing specialist. Denies numbness. Related Data Allergies Allergy/AdvReac Type Severity Reaction Status Date / Time No Known Allergies Allergy Verified 12/27/24 09:29 Review of Systems Review of Systems: All systems reviewed & are unremarkable except as noted in HPI. All systems reviewed & are unremarkable except as noted in HPI and below PMFSH Past Medical History Medical History Healthy adult male Surgical History Surgical History No pertinent past surgical history Exam Narrative: GENERAL: Well appearing, well-nourished, non-toxic, in no acute distress. HEAD: Normocephalic, atraumatic. RESPIRATORY: Airway patent, respirations nonlabored. CARDIOVASCULAR: Regular rate and rhythm. Pedal pulses intact and easily palpable MUSCULOSKELETAL: Moves all extremities. No gross deformities. Mild diffuse swelling throughout L anterior knee. Mild tenderness throughout superior knee. No swelling/tenderness throughout L lower leg/calf. Sensation intact. SKIN: Warm, dry, normal color. NEURO: A&O X3. Speech clear. Steady gait. No ataxic movements. PSYCHIATRIC: Appropriate mood and affect. Normal interaction. Course Vital Signs Vital signs: Vital Signs Temperature 97.6 F 12/27/24 09:27 Pulse Rate 80 12/27/24 09:27 Respiratory Rate 16 12/27/24 09:27 Blood Pressure 140/94 H 12/27/24 09:27 Pulse Oximetry 97 12/27/24 09:27 Oxygen Delivery Room Air 12/27/24 09:27 Temperature 97.6 F 12/27/24 09:27 Pulse Rate 73 12/27/24 10:17 Respiratory Rate 20 12/27/24 10:17 Blood Pressure 138/93 H 12/27/24 10:17 Pulse Oximetry 98 12/27/24 10:17 Oxygen Delivery Room Air 12/27/24 09:27 MDM - Extremity Injury (Lower) MDM Narrative Medical decision making narrative: Patient?s injury is consistent with musculoskeletal etiology. No signs of neurologic or vascular compromise on physical examination. Compartments are soft without signs of compartment syndrome. XR a left knee negative obtained w/o acute osseous abnormality. No joint effusion. Soft tissues within normal range. Pain is consistent with knee strain, possible internal derangement. Patient is felt to be stable for discharge home and further outpatient management and treatment. Discussed rice therapy, given Tan bandage in the ED. Recommended that patient have follow-up with his campaign marketing specialist for repeat evaluation. Discussed return precautions. He is in agreement plan. Discharged in stable condition. Medical Records Attestation: I reviewed the patient's medical records. Imaging Data Attestation: I personally reviewed and interpreted this imaging study as follows: Radiologist's impression: ITS Impressions Knee X-Ray 12/27/24 10:40 Impression: No acute fracture or malalignment. Discharge Plan Discharge Clinical Impression: Strain of left knee Qualifiers: Encounter type: initial encounter Qualified Code(s): S86.912A - Strain of unspecified muscle(s) and tendon(s) at lower leg level, left leg, initial encounter Patient Disposition: Home Condition: Stable Instructions: Antibiotic Form, Knee Sprain (ED), P.R.I.C.E. Treatment (ED) Additional Instructions: Recommend rest, frequent ice, elevation of left leg whenever possible. Recommend Tylenol as needed for pain. Follow-up with your campaign marketing specialist for further evaluation. Return to the ED if you experience worsening or severe pain, recurrent injury, severe swelling, numbness, or any other symptoms of concern. Patient Language: Eritrean Prescriptions: No Action doxycycline hyclate 100 mg capsule 100 mg PO BID 7 Days Qty: 14 0RF Follow-up/Referrals: Karlos Singh [Other] Time of Disposition: 11:20
--- OUTSIDE RECORDS SUMMARY | 2024-12-27 11:51 | XMS_ITS | Encounter Summary ---
Author Organization [facility] Address [address] [facility] [place] [address] Care Team Providers Care Dry Wall Finisher Name Role Phone Thierno Weber MD Unavailable Karlos Singh MD Primary Care Provider [phone] Encounter Details Date Type Department Care Team (Late st Contact Info) Description 12/27/2024 Results Follow-Up [facility] - Family Medicine [id number] [place] [address] [address] [place] [address] [place] [address] 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 Not on file Not on file documented as of this encounter Plan of Treatment Upcoming Encounters Date Type Department Care Team (Late st Contact Info) Description 02/07/2025 8:20 AM HEALTH EDUCATOR Office Visit [facility] [address] [place] [id number] [place] [address] [facility] [address] [place] [address] 03/03/2025 9:00 AM HEALTH EDUCATOR Office Visit [facility] [address] [place] [id number] [place] [address] [facility] [address] [place] [address] 06/23/2025 11:20 AM CDT Office Visit [facility] [address] [facility] [address] [place] [address] [place] [address] [facility] [address] [place] [address] documented as of this encounter Visit Diagnoses Not on filedocumented in this encounter Care Teams Dry Wall Finisher Relationship Specialty [place] [address] [facility] [address] [place] [address] PCP - General Internal Medicine 12/23/24 [place] [address] [facility] [address] [place] [address] Physical Medicine and Rehabilitation 07/06/24 documented as of this encounter
--- OUTSIDE RECORDS SUMMARY | 2024-12-27 11:51 | XMS_ITS | Encounter Summary ---
Author Organization [facility] Healthcare Address [address] [place] [address] Care Team Providers Care Coal Handling Supervisor Name Role Phone No, Physician Primary Care Provider [phone] Trung Ventura MD Primary Care Provider Stas Jiménez MD Unavailable [phone] Bradley Cook MD Primary Care Pro vider Encounter Details Date Type Department Care Team (Latest Contact Info) Description 06/15/2020 Ophth Exam Ophthalmology Zarina Perez MD [address] [facility] [address] [place], [place] [id number] Social History Tobacco Use Types Packs/Day Years Used Date Smoking Tobacco: Every Day Cigarettes 0.3 15 Cigars Sex and Gender Information Value Date Recorded Sex Assigned at Not on file Legal Sex Male 11:19 AM ECONOMIC CONSULTANT Gender Identity Male 04/17/2024 12:19 AM ECONOMIC CONSULTANT Sexual Orientation Straight 04/17/2024 12 :19 AM ECONOMIC CONSULTANT documented as of this encounter Plan [...] hemorrhages, no exdua rosalinda Normal Care Teams Coal Handling Supervisor Relationship Specialty Start Date End Date No, Physician PCP - General 06/10/20 08/19/21 Trung Ventura MD [facility] [facility] [address] [place] [address] PCP - General Family Medicine 08/20/21 01/16/23 Bradley Cook MD [address] [place] [address] PCP - General Family Medicine 01/17/23 Stas Jiménez MD [address] [facility] [address] [place] [address] Surgeon Orthopedic Surgery 09/13/21 documented as of this encounter
--- OUTSIDE RECORDS SUMMARY | 2024-12-27 11:51 | XMS_ITS | Clinical Summary ---
Author Organization [facility] Address [address] [facility] [place] [address] Care Team Providers Care Chief Cook Name Role Phone Thierno Weber MD Unavailable [phone] Karlos Singh MD Primary Care Provider [phone] Source Comments [facility],non-owned Affiliates and Associated Physician Practices is amultiple site organization consisting of ambulatory clinics and hospital sitesin [place], [place], [place] and [place]. This disclosure is being madepursuant to the Care Everywhere program and may not contain all information available regarding this patient. Last updated 17.[facility] Allergies No known active allergies Medications * [...] Department Care Team Description 12/27/2024 Results Follow-Up [address] [place] [address] Karlos Singh MD 12/23/2024 11:30 AM CDT Office Visit [address] [place] [address] Karlos Singh MD Prediabetes (Primary Dx); Class [...] Sex Assigned at Male 03/11/2023 3:03 PM INHALATION THERAPIST Legal Sex Male 6:39 AM INHALATION THERAPIST Gender Identity Male 03/11/2023 3:03 PM INHALATION THERAPIST Sexual Orientation Straight 03/11/2023 3: 03 PM INHALATION THERAPIST 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 Not on file [...] st Contact Info) Description 02/07/2025 8:20 AM INHALATION THERAPIST Office Visit [facility] [address] [place] [address] [place] [address] [place] [address] 03/03/2025 9:00 AM INHALATION THERAPIST Office Visit [facility] [place] [address] [place] [address] [place] [address] [address] [place] [address] 06/23/2025 11:20 AM CDT Office Visit [facility] [id number] [place] [address] [address] [place] [address] [place] [address] [facility] [address] [place] [address] Health Maintenance Due Date Last [...] - 12/25/2024 8:11 AM CDT Performed at: [address] [id number] Hyperbaric Technician: Isaiah Ramos PhD, Phone: [phone] us Karlos Singh MD LAB - CHEMISTRY ORDERABLES Final Result [facility] ACCOUNT BILL [address] [place] [address] * VITAMIN B12 FOLATE PANEL (12/24/2024 11:47 AM CDT) Vitamin B12 447 213 - 816 pg/mL [facility] ACCOUNT BILL Folate 10.7 7.0 - 31.4 ng/mL [facility] ACCOUNT BILL Blood BLOOD SPECIMEN / Unknown 12/24/2024 11:47 AM CDT 12/24/2024 Narrative [facility] ACCOUNT BILL - 12/24/2024 5:10 PM CDT Performed at: [address] [place] [address] [address] [place], [place] [id number] Hyperbaric Technician: Angelo BARBOUR, Phone: [phone] Karlos Singh MD LAB - CHEMISTRY ORDERABLES Final Result [facility] ACCOUNT BILL [address] [place] [address] * HEMOGLOBIN A1C - POINT OF CARE (AMB) (12/23/2024 1:44 PM CDT) [facility] Hemoglobin A1c POCT 6.1 % [facility] Expiration Date 06/20/2026 [facility] Lot # [id number] [facility] QC Verified Yes Yes [facility] Blood BLOOD SPECIMEN / Unknown 12/23/2024 1:44 PM CDT Karlos Singh MD LAB - POINT OF CARE ORDERAB LES Final Result [facility] [address] [place] [address], [facility] [phone] * HIV-1 HIV-2 ANTIBODY + HIV P24 AG PANEL (12/11/2022 10:17 AM CDT) [facility] HIV Screen 4th Generation w Reflex Non Reactive Non Reactive [facility] INSURANCE BILL Comment: HIV Negative HIV-1/HIV-2 antibodies and HIV-1 p24 antigen were NOT detected. There is no laboratory evidence of HIV infection. FASTING Blood BLOOD SPECIMEN / Unknown 12/11/2022 10:17 AM CDT 12/11/2022 Narrative Resulting Agency Comment Lab Testing performed at: [facility] [address] [facility] [id number] Bradley Cook MD LAB - CHEMISTRY ORDERABLES Fi nal Result [facility] INSURANCE BILL [address] [place] [address] * HEPATITIS C ANTIBODY (12/11/2022 10:17 AM CDT) [facility] Hepatitis C Antibody Non Reactive Non Reactive [...] Resulting Agency Comment Lab Testing performed at: [facility] [address] [facility] [id number] Bradley Cook MD LAB - CHEMISTRY ORDERABLES Fi nal Result [facility] INSURANCE BILL [address] [place] [address] from Last 3 Months or Most Recently Relevant to Health Maintenance Insurance ANTHEM Advance Directives * Full Code (Latest Code Status on File) Date Activated Date Inactivated Comments 06/06/2016 1:48 PM 06/06/2016 8:07 PM * Full Code Date Activated Date Inactivated Comments 06/06/2016 12:15 PM 06/06/2016 1:48 PM Care Teams Chief Cook Relationship Specialty [place] [address] [facility] [address] [place] [address] PCP - General Internal Medicine 12/23/24 [place] [address] [facility] [address] [place] [address] Physical Medicine and Rehabilitation 07/06/24
--- OUTSIDE RECORDS SUMMARY | 2024-12-27 11:51 | XMS_ITS | Clinical Summary ---
Author Organization [facility] Address [address] [place] [address] [place] [address] Phone Care Team Providers Care Utility Specialist Name Role Phone Unavailable Primary Care Provider [...] any time in the past 12 m [facility], were you homeless or living in a retirement (including now)? No 02/12/2021 Sex and Gender [...] (2 - Td or Tdap) 01/16/2025 [facility] [employer] CHOICE Advance Directives For more information, please contact: [phone] * Full Code (Latest Code Status on File) Date Activated Date Inactivated Comments 02/11/2021 7:58 AM 02/12/2021 9:03 PM
--- OUTSIDE RECORDS SUMMARY | 2024-12-27 11:51 | XMS_ITS | Encounter Summary ---
Author Organization [facility] Healthcare Address [address] [place] [address] Care Team Providers Care Airport Representative Name Role Phone No, Physician Primary Care Provider [phone] Trung Ventura MD Primary Care Provider Stas Jiménez MD Unavailable Bradley Cook MD Primary Care Pro vider Encounter Details Date Type Department Care Team (Latest Contact Info) Description 06/12/2020 Ophth Exam Ophthalmology Albaro Kitchen MD [address] [place] [address] [address] [place] [address] Social History Tobacco Use Types Packs/Day Years Used Date Smoking Tobacco: Every Day Cigarettes 0.3 15 Cigars Sex and Gender Information Value Date Recorded Sex Assigned at Not on file Legal Sex Male 11:19 AM REGULATOR OPERATOR Gender Identity Male 04/17/2024 12:19 AM REGULATOR OPERATOR Sexual Orientation Straight 04/17/2024 12 :19 AM REGULATOR OPERATOR documented as of this encounter Plan of [...] superiorly, none in posterior pole Care Teams Airport Representative Relationship Specialty Start Date End Date No, Physician PCP - General 06/10/20 08/19/21 Trung Ventura MD [address] [place] [address] [address] [place] [address] PCP - General Family Medicine 08/20/21 01/16/23 Bradley Cook MD [address] [place] [address] PCP - General Family Medicine 01/17/23 Stas Jiménez MD [address] [facility] [address], [place] [address] Surgeon Orthopedic Surgery 09/13/21 documented as of this encounter
--- OUTSIDE RECORDS SUMMARY | 2024-12-27 11:51 | XMS_ITS | Clinical Summary ---
Author Organization [facility] Address [address] [place] [address] Phone Care Team Providers Care Satellite Installation Technician Name Role Phone Stas Jiménez MD Unavailable [phone] Bradley Cook MD Primary Care Pro vider [...] daily 15 tablet 4 Active bismuth subcit Q-pozpyIJMRQ-zx n (PYLERA) 140-125-125 mg per capsuleIndicati ons:Helicobacte [...] 04/22/2023 Assessment & Plan (04/22/2023 7:08 PM CRIMINAL DEFENSE LAWYER): Moderately severe bloating. He was counseled about appropriate diet especially avoidance of consumption of excessive dairy products, segmental liver vegetables. Printed patient educational material was given. Was also advised to keep a food journal. Constipation 04/22/2023 Assessment & Plan (04/22/2023 7:10 PM CRIMINAL DEFENSE LAWYER): Moderately severe constipation. May be IBS C versus CIC. He was counseled to augment water consumption. MiraLax 17 g b.i.d. is prescribed. He was advised to reduce it to once daily if he starts to have too many loose bowel movements daily. Check TSH. Hyperparathyroidism 12/31/2022 Mild intermittent asthma, uncomplicated 12/12/19 23 Non-alcoholic fatty liver disease 09/18/2022 Assessment & Plan (04/22/2023 7:04 PM CRIMINAL DEFENSE LAWYER): Chronically mild elevated alkaline phosphatase (150). Denies [...] 09/18/2022 Assessment & Plan (04/22/2023 7:05 PM CRIMINAL DEFENSE LAWYER): Likely due to fatty liver. Morbidly obese. [...] on file Legal Sex Male 11:19 AM CRIMINAL DEFENSE LAWYER Gender Identity Male 04/17/2024 12:19 AM CRIMINAL DEFENSE LAWYER Sexual Orientation Straight 04/17/2024 12 :19 AM CRIMINAL DEFENSE LAWYER Obstetrics History Last Filed Vital Signs Vital [...] 08/20/2022, 021 Medical Devices Implanted Type Area Retail Office Associate Device Identifier Shelf Expiration Date Model / Serial / Lot Lifenet Flexigraft 160mm Frozen Block Graft Soft Tissue Achilles Tendon Fatb - [id number] - [id number] Implanted:Qty: 1 on 09/13/2021 by Stas Jiménez MD at [facility] Graft Right: Knee Lifenet 11/22/2025 FATB / [id number] / [id number] [employer] [place] Suture 2-0 5 Juggerstitch Maxbraid Poly Strl Ltxfre [id number] - Sxxxx - [id number] Implanted:Qty: 1 on 09/13/2021 by Stas Jiménez MD at [facility] Other - see comments Right: Knee [employer] 07/26/2026 [id number] / [id number] / [id number] Description:SUTURE [employer] [place] Suture 2-0 5 Juggerstitch Maxbraid Poly Strl Ltxfre [id number] - Sxxxx - [id number] Implanted:Qty: 1 on 09/13/2021 by Stas Jiménez MD at [facility] Other - see comments Right: Knee [employer] 07/15/2025 [id number] / [id number] / [id number] Description:SUTURE [employer] Scp Accuport 11 Ga L120 Mm Side Delivery Cannula Kit Knee Substitute Bone Graft Sterile 414.502 - Sxxxx - [id number] Implanted:Qty: 1 on 09/13/2021 by Stas Jiménez MD at [facility] Other - see comments Right: Knee [employer] 07/21/2023 414.502 / XXXX / [id number] Description:KIT [employer] [place] Suture 2-0 5 Juggerstitch Maxbraid Poly Strl Ltxfre 496284983 - Sxxxx - [id number] Implanted:Qty: 1 on 09/13/2021 by Stas Jiménez MD at [facility] Other - see comments Right: Knee [employer] 12/01/2025 [id number] / XXXX / [id number] Description:ANCHOR [employer] [place] Suture 2-0 5 Juggerstitch Maxbraid Poly Strl Ltxfre [id number] - Sxxxx - [id number] Implanted:Qty: 1 on 09/13/2021 by Stas Jiménez MD at [facility] Other - see comments Right: Knee [employer] 07/19/2026 [id number] / XXXX / [id number] Description:ANCHOR [employer] Screw Fastthread Biocomposite Interference 7mm X 20mm Ar-4020c-07 - Sxxxx - [id number] Implanted:Qty: 1 on 09/13/2021 by Stas Jiménez MD at [facility] Screw Right: Knee [employer] 02/13/2025 AR-4020C-07 / XXXX / [id number] [employer] Retroscrew 10mm 20mm Reconstruction Reverse Thread Design Tibia Pd-5358dp-68 - Sxxxx - [id number] Implanted:Qty: 1 on 09/13/2021 by Stas Jiménez MD at [facility] Screw Right: Knee [employer] 02/14/2024 AR-1586RB-1 0 / XXXX / [id number] [employer] 6.5mm 30mm Depth José Miguel Step Drill Acl/Pcl Cancellous Groove Low Ar-1356 - Sxxxx - [id number] Implanted:Qty: 1 on 09/13/2021 by Stas Jiménez MD at [facility] Screw Right: Knee [employer] 07/14/2026 AR-1356 / XXXX / [id number] [employer] Implant Menicus Repair Fiberstitch Curved Ar-4570 - Sxxxx - [id number] Implanted:Qty: 1 on 09/13/2021 by Stas Jiménez MD at [facility] Right: Knee [employer] 02/13/2025 AR-4570 / XXXX / [id number] [employer] Implant Menicus Repair Fiberstitch Curved Ar-4570 - Sxxxx - [id number] Implanted:Qty: 1 on 09/13/2021 by Stas Jiménez MD at [facility] Right: Knee [employer] 03/16/2025 AR-4570 / XXXX / [id number] [employer] Screw Interference Antonina Ft Wedge Rnd Compositcp 7.0x30mm [id number] - [id number] Implanted:Qty: 1 on 07/03/2023 by Stas Jiménez MD at [facility] Left: Knee [employer] 03/17/2025 [id number] / / [id number] [employer] [place] Ventix Link Knotless 4.75mm Mach [id number] - [id number] Implanted:Qty: 1 on 07/03/2023 by Stas Jiménez MD at [facility] Left: Knee [employer] 08/14/2025 [id number] / / [id number] [employer] Screw Interference Antonina Th Wedge Briones Plla Cmpstcp 30 71d15ma 593381 - [id number] Implanted:Qty: 1 on 07/03/2023 by Stas Jiménez MD at [facility] Left: Knee [employer] 02/14/2026 [id number] / / [id number] Lifenet Flexigraft 160mm Frozen Block Graft Soft Tissue Achilles Tendon Fatb - [id number] - [id number] Implanted:Qty: 1 on 07/03/2023 by Stas Jiménez MD at [facility] Left: Knee Lifenet 04/22/2028 FATB / [id number] / Procedures Procedure Name Priority Date/Time Associated Diagnosis Comments HEPATITIS PANEL, ACUTE Routine 08/20/2022 12:53 PM CDT Potential exposure to STD from Last 3 Months or Most Recently Relevant to Health Maintenance Results * Hepatitis panel, acute (08/20/2022 12:53 PM CDT) Hep A IgM Nonreactive Nonreactive [facility] Comment: Interpretive Data: If Hep A IgM Ab is reported as Equivocal, a new sample should be drawn in two weeks for testing. Current interpretive data was last revised on 19. Hep B core IgM Nonreactive Nonreactive [facility] Comment: Interpretive Data If HepB Core IgM Ab is reported as Equivocal, a new sample should be drawn in two weeks for testing. Current interpretive data was last revised on 19. Hep C Ab Nonreactive Nonreactive [facility] Comment: Interpretive Data Nonreactive: Antibodies to HCV [...] last revised on 2019. HepBsAg Nonreactive Nonreactive [facility] Blood 08/20/2022 12:5 3 PM CDT 08/20/2022 6:54 PM CDT Trung Ventura MD LAB MICROBIOLOGY - GENE RAL ORDERABLES Final Result [facility] [address] Department [place] [address] from Last 3 Months or Most Recently Relevant to Health Maintenance Insurance [employer] ACCESS ANTHEM ACCESS Advance Directives For more information, please contact: [phone] * Full Code (Latest Code Status on File) Date Activated Date Inactivated Comments 06/10/2020 5:36 PM 06/20/2020 9:33 PM Care Teams Satellite Installation Technician Relationship Specialty Start Date End Date Bradley Cook MD [address] [place] [address] PCP - General Family Medicine 01/17/23 Stas Jiménez MD Surgeon Orthopedic Surgery 09/13/21
--- OUTSIDE RECORDS SUMMARY | 2024-12-27 11:51 | XMS_ITS | Encounter Summary ---
Author Organization [facility] Healthcare Address [address] [place] [address] Care Team Providers Care Energy Auditor Name Role Phone No, Physician Primary Care Provider [phone] Trung Ventura MD Primary Care Provider Stas Jiménez MD Unavailable [phone] Bradley Cook MD Primary Care Pro vider Encounter Details Date Type Department Care Team (Latest Contact Info) Description 06/10/2020 Ophth Exam Ophthalmology Esperanza Shepherd MD [address] [place], [place] [id number] Social History Tobacco Use Types Packs/Day Years Used Date Smoking Tobacco: Every Day Cigarettes 0.3 15 Cigars Sex and Gender Information Value Date Recorded Sex Assigned at Not on file Legal Sex Male 11:19 AM STAVE JOINTER Gender Identity Male 04/17/2024 12:19 AM STAVE JOINTER Sexual Orientation Straight 04/17/2024 12 :19 AM STAVE JOINTER documented as of this encounter Plan of [...] superiorly, none in posterior pole Care Teams Energy Auditor Relationship Specialty Start Date End Date No, Physician PCP - General 06/10/20 08/19/21 Trung Ventura MD [address] [facility] [address] [place] [address] PCP - General Family Medicine 08/20/21 01/16/23 Bradley Cook MD [address] [place] [address] PCP - General Family Medicine 01/17/23 Stas Jiménez MD [address] [facility] [address] [place] [address] Surgeon Orthopedic Surgery 09/13/21 documented as of this encounter
--- OUTSIDE RECORDS SUMMARY | 2024-12-27 11:51 | XMS_ITS | Encounter Summary ---
Author Organization [facility] Address [address] [place] [address] Phone Care Team Providers Care Overedger Name Role Phone No, Physician Primary Care Provider [phone] Trung Ventura MD Primary Care Provider Stas Jiménez MD Unavailable [phone] Bradley Cook MD Primary Care Pro vider Encounter Details Date Type Department Care Team (Late st Contact Info) Description 06/11/2020 Ophth Exam [facility] Medicine Ophthalmology [address] [place] [address] 1st [place] [id number] Jesse Sue MD [address] [facility] [phone] [place] [address] Social History Tobacco Use Types Packs/Day Years Used Date Smoking Tobacco: Every Day Cigarettes 0.3 15 Cigars Sex and Gender Information Value Date Recorded Sex Assigned at Not on file Legal Sex Male 11:19 AM GEOTECHNICAL INTERN Gender Identity Male 04/17/2024 12:19 AM GEOTECHNICAL INTERN Sexual Orientation Straight 04/17/2024 12 :19 AM GEOTECHNICAL INTERN documented as of this encounter Plan of [...] yuli ctive Lens Clear Clear Care Teams Overedger Relationship Specialty Start Date End Date No, Physician PCP - General 06/10/20 08/19/21 Trung Ventura MD [address] [facility] [address], [place] [address] PCP - General Family Medicine 08/20/21 01/16/23 Bradley Cook MD [address] [place] [address] PCP - General Family Medicine 01/17/23 Stas Jiménez MD [address] [address] [place] [address] Surgeon Orthopedic Surgery 09/13/21 documented as of this encounter
== END 2024-12-27 11:27 | disposition home or self-care (01) ==
PROVIDERS: Emergency Provider Physician Assistant
DX: S86.912A Strain of unspecified muscle(s) and tendon(s) at lower leg level, left leg, initial encounter (principal); W18.2XXA Fall in (into) shower or empty bathtub, initial encounter
CPT/HCPCS: 73564; 99283

== ENCOUNTER 2025-01-17 04:10 | Emergency (ER) | payer BC, SELFPAY ==
--- OUTSIDE RECORDS SUMMARY | 2022-08-01 09:21 | XMS_ITS | Continuity of Care Document ---
Author Organization [facility] Address [address] 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 Name Role Phone Dylan Corey PT Unavailable Unavailable Procedures Procedure Date Therapeutic Activities Therapeutic Exercise Therapeutic Activities Therapeutic Exercise Therapeutic Activities Neuromuscular Re-Ed Therapeutic Exercise Therapeutic Activities Therapeutic Exercise Therapeutic Activities Neuromuscular Re-Ed Therapeutic Exercise Therapeutic Activities Therapeutic Exercise Therapeutic Activities Neuromuscular Re-Ed Therapeutic Exercise PT Evaluation Low Complexity Therapeutic Activities Therapeutic Exercise Therapeutic Activities Therapeutic Exercise Therapeutic Activities Therapeutic Exercise Therapeutic Activities Therapeutic Exercise Therapeutic Activities Neuromuscular Re-Ed Therapeutic Exercise Therapeutic Activities Therapeutic Exercise Therapeutic Activities Therapeutic Exercise Progress Note Therapeutic Activities Therapeutic Exercise Therapeutic Activities Neuromuscular Re-Ed Therapeutic Exercise Therapeutic Activities Neuromuscular Re-Ed Therapeutic Exercise Therapeutic Activities Neuromuscular Re-Ed Therapeutic Exercise Therapeutic Activities Therapeutic Exercise Therapeutic Activities Therapeutic Exercise Therapeutic Activities Therapeutic Exercise Neuromuscular Re-Ed Therapeutic Activities Therapeutic Exercise Therapeutic Activities Neuromuscular Re-Ed Therapeutic Exercise Therapeutic Activities Therapeutic Exercise Therapeutic Activities Therapeutic Exercise Neuromuscular Re-Ed Therapeutic Activities Therapeutic Exercise Neuromuscular Re-Ed Therapeutic Exercise Neuromuscular Re-Ed Therapeutic Activities Therapeutic Activities Neuromuscular Re-Ed Therapeutic Exercise Therapeutic Activities Neuromuscular Re-Ed Therapeutic Exercise Therapeutic Activities Therapeutic Exercise Neuromuscular Re-Ed Therapeutic Activities Neuromuscular Re-Ed Therapeutic Exercise Neuromuscular Re-Ed Therapeutic Activities Therapeutic Exercise Therapeutic Activities Electrical Stimulation Hot or Cold Pack Therapeutic Exercise Neuromuscular Re-Ed Therapeutic Exercise Neuromuscular Re-Ed Therapeutic Activities Therapeutic Activities Hot or Cold Pack Therapeutic Exercise Neuromuscular Re-Ed Electrical Stimulation Therapeutic Exercise Neuromuscular Re-Ed Therapeutic Activities Electrical Stimulation Hot or Cold Pack Therapeutic Activities Neuromuscular Re-Ed Therapeutic Exercise Hot or Cold Pack Electrical Stimulation Manual Therapy Therapeutic Exercise Neuromuscular Re-Ed Electrical Stimulation Hot or Cold Pack Therapeutic Exercise Neuromuscular Re-Ed Therapeutic Activities Hot or Cold Pack Therapeutic Exercise Therapeutic Activities Hot or Cold Pack Manual Therapy Therapeutic Exercise Manual Therapy Electrical Stimulation Hot or Cold Pack Neuromuscular Re-Ed Hot or Cold Pack Therapeutic Exercise PT Evaluation Low Complexity Manual Therapy Therapeutic Exercise Hot or Cold Pack Advance Directives Directive Yes / No Effective Date File Name No Information Encounters Encounter Description Practice Location Reason(s) For Visit Diagnoses Date Provider Providers Copied on Encounter [facility] [facility], [place], [place], [id number], tel:[phone] [place] No Information Taccola Luke. . [facility], [place], [place], [id number], tel:[phone] Elizabeth No Information Taccola Luke. . Referring Provider: Stas Jiménez S, [address], [place], [address]. tel:[phone] [facility], [place], [place], [address], [place] tel:[phone] [place] No Information Taccola Luke. . Referring Provider: Stas Yin, [address], [place], [address]. tel:[phone] [facility], [address], [place], [place], [address], [place] tel:[phone] [place] No Information Taccola Luke. . Referring Provider: Stas Yin, [address], [place], [address]. tel:[phone] [facility] [address], [place], [place], [address], tel:[phone] [place] No Information Taccola Luke. . Referring Provider: Stas Yin, [address], [place], [address]. tel:[phone] [facility] [address], [place], [place], [address], [place] tel:[phone] Johnson No Information Taccola Luke. . Referring Provider: Stas Yin, [address], [place], [address]. tel:[phone] [facility], [place], [place], [address], [place] tel:[phone] Johnson No Information Taccola Luke. . Referring Provider: Stas Yin, [address], [place], [address]. tel:[phone] [facility], [place], [place], [address], tel:[phone] Johnson No Information Taccola Luke. . Referring Provider: Stas Yin, [address], [place], [address]. tel:[phone] [facility], [place], [place], [address], tel:[phone] [place] No Information Taccola Luke. . Referring Provider: Stas Jiménez S, [address], [place], [address]. tel:[phone] [facility] [address], [place], [place], [address], [place] tel:[phone] Adrian No Information Falsimi Christinea. . Referring Provider: Stas Yin, [address], [place], [address]. tel:[phone] [facility], [place], [place], [address], [place] tel:[phone] Adrian No Information Duarte Bonita. . Referring Provider: Stas Yin, [address], [place], [address]. tel:[phone] [facility], [place], [place], [address], [place] tel:[phone] Adrian No Information Duarte Bonita. . Referring Provider: Stas Yin, [address], [place], [address]. tel:[phone] [facility], [place], [place], [address], [place] tel:[phone] Adrian No Information Duarte Bonita. . Referring Provider: Stas Yin, [address], [place], [address]. tel:[phone] [facility], [place], [place], [address], [place] tel:[phone] Adrian No Information Falduti Aggie. . Referring Provider: Stas Yin, [address], [place], [address]. tel:[phone] [facility] [address], [place], [place], [address], [place] tel:[phone] Adrian No Information Falduti Aggie. . Referring Provider: Stas Yin, [address], [place], [address]. tel:[phone] [facility], [place], [place], [address], [place] tel:[phone] Adrian No Information Felicia Mesa. . Referring Provider: Stas Yin, [address], [place], [address]. tel:[phone] [facility], [place], [place], [address], [place] tel:[phone] Adrian No Information Cameron Hendricks. . Referring Provider: Stas Yin, [address], [place], [address]. tel:[phone] [facility], [place], [place], [address], [place] tel:[phone] Adrian No Information Felicia Mesa. . Referring Provider: Stas Yin, [address], [place], [address]. tel:[phone] [facility], [place], [place], [address], [place] tel:[phone] Adrian No Information Duarte Bonita. . Referring Provider: Stas Yin, [address], [place], [address]. tel:[phone] [facility], [address], [place], [place], [address], [place] tel:[phone] Adrian No Information Cameron Hendricks. . Referring Provider: Stas Yin, [address], [place], [address]. tel:[phone] [facility] [address], [place], [place], [address], [place] tel:[phone] Adrian No Information Cameron Hendricks. . Referring Provider: Stas Yin, [address], [place], [address]. tel:[phone] [facility], [place], [place], [address], [place] tel:[phone] Adrian No Information Duarte Bonita. . Referring Provider: Stas Yin, [address], [place], [address]. tel:[phone] [facility] [address], [place], [place], [address], [place] tel:[phone] Adrian No Information Duarte Bonita. . Referring Provider: Stas Yin, [address], [place], [address]. tel:[phone] [facility], [place], [place], [address], [place] tel:[phone] Adrian No Information Cameron Hendricks. . Referring Provider: Stas Yin, [address], [place], [address]. tel:[phone] [facility], [place], [place], [address], [place] tel:[phone] Adrian No Information Duarte Bonita. . Referring Provider: Stas Yin, [address], [place], [address]. tel:[phone] [facility], [place], [address], [place] tel:[phone] Adrian No Information Duarte Obnita. . Referring Provider: Stas Yin, [address], [place], [address]. tel:[phone] [facility], [place], [place], [address], [place] tel:[phone] Adrian No Information Duarte Bonita. . Referring Provider: Stas Yin, [address], [place], [address]. tel:[phone] [facility], [place], [place], [address], [place] tel:[phone] Adrian No Information Duarte Bonita. . Referring Provider: Stas Yin, [address], [place], [address]. tel:[phone] [facility], [place], [place], [address], [place] tel:[phone] Adrian No Information Duarte Bonita. . Referring Provider: Stas Yin, [address], [place], [address]. tel:[phone] [facility], [place], [place], [address], [place] tel:[phone] Adrian No Information Duarte Bonita. . Referring Provider: Stas Yin, [address], [place], [address]. tel:[phone] [facility], [place], [place], [address], [place] tel:[phone] Adrian No Information Duarte Bonita. . Referring Provider: Stas Yin, [address], [place], [address]. tel:[phone] [facility] [address], [place], [place], [address], [place] tel:[phone] Adrian No Information Duarte Bonita. . Referring Provider: Stas Yin, [address], [place], [address]. tel:[phone] [facility], [place], [place], [address], [place] tel:[phone] Adrian No Information Duarte Bonita. . Referring Provider: Stas Yin, [address], [place], [address]. tel:[phone] [facility], [place], [place], [address], [place] tel:[phone] Adrian No Information Duarte Bonita. . Referring Provider: Stas Yin, [address], [place], [address]. tel:[phone] [facility], [place], [place], [address], [place] tel:[phone] Adrian No Information Duarte Bonita. . Referring Provider: Stas Yin, [address], [place], [address]. tel:[phone] [facility], [place], [place], [address], [place] tel:[phone] Adrian No Information Cameron Hendricks. . Referring Provider: Stas Yin, [address], [place], [address]. tel:[phone] [facility], [place], [place], [address], [place] tel:[phone] Adrian No Information Cameron Hendricks. . Referring Provider: Stas Yin, [address], [place], [address]. tel:[phone] [facility], [place], [place], [address], [place] tel:[phone] Adrian No Information Cameron Hendricks. . Referring Provider: Stas Yin, [address], [place], [address]. tel:[phone] [facility], [place], [place], [address], [place] tel:[phone] Adrian No Information Felicia Mesa. . Referring Provider: Stas Yin, [address], [place], [address]. tel:[phone] [facility], [place], [place], [address], [place] tel:[phone] Adrian No Information Duarte Bonita. . Referring Provider: Stas Yin, [address], [place], [address]. tel:[phone] [facility], [place], [place], [address], [place] tel:[phone] Adrian No Information Duarte Bonita. . Referring Provider: Stas Yin, [address], [place], [address]. tel:[phone] [facility], [address] [facility] [address], [place], [place], [address], tel:[phone] Adrian No Information Duarte Bonita. . Referring Provider: Stas Yin, [address], [place], [address]. tel:[phone] [address], [place], [place], [address], tel:[phone] Adrian No Information Duarte Bonita. . Referring Provider: Stas Yin, [address], [place], [address]. tel:[phone] [facility] [address] [place], [place] [address], [place], [place], [address], tel:[phone] Adrian No Information Duarte Bonita. . Referring Provider: Stas Yin, [address], [place], [address]. tel:[phone] Family History Family Member Type Diagnosis Age At Onset No Information Payers Payer name Insurance type Covered democrat ID Chantel ramon(s) [employer] [id number] Social History Type Description Quantity Date Captured Comments Sex Male Smoking Status No Information Chief Complaint And Reason For Visit No Information Reason For Referral Reason For Referral No Information Plan Of Treatment Date Type Action Status Referral Ordered: Weight management: Referral to physician timeframe: 1 Month. (related to Overweight) ordered Referral Ordered: PCP timeframe: 1 week. (related to Overweight) ordered History Of Present Illness Encounter Date Complaint History Of Prese nt Illness No Information Functional Status Date Functional Assessmen t No Information Instructions Date Instruction Additional Infor lane Dietary needs education Related to Overweight Prescribed activity/exercise edu cation Related to Overweight Assessments Type Assessment Date No Information Patient Care Teams Name Effective Dates (start - stop) Status Members No Information
--- OUTSIDE RECORDS SUMMARY | 2025-01-17 04:13 | XMS_ITS | Encounter Summary ---
Author Organization [facility] Healthcare Address [address] [place] [address] Care Team Providers Care Farm Boss Name Role Phone No, Physician Primary Care Provider [phone] Trung Ventura MD Primary Care Provider Stas Jiménez MD Unavailable [phone] Bradley Cook MD Primary Care Pro vider Encounter Details Date Type Department Care Team (Latest Contact Info) Description 06/12/2020 Ophth Exam Ophthalmology Albaro Kitchen MD [address] [place] [address] [address] [place] [address] Social History Tobacco Use Types Packs/Day Years Used Date Smoking Tobacco: Every Day Cigarettes 0.3 15 Cigars Sex and Gender Information Value Date Recorded Sex Assigned at Not on file Legal Sex Male 11:19 AM PEDIATRICS HOSPITALIST Gender Identity Male 04/17/2024 12:19 AM PEDIATRICS HOSPITALIST Sexual Orientation Straight 04/17/2024 12 :19 AM PEDIATRICS HOSPITALIST documented as of this encounter Plan of [...] superiorly, none in posterior pole Care Teams Farm Boss Relationship Specialty Start Date End Date No, Physician PCP - General 06/10/20 08/19/21 Trung Ventura MD [address] [place] [address] [address] [place] [address] PCP - General Family Medicine 08/20/21 01/16/23 Bradley Cook MD [address] [place] [address] PCP - General Family Medicine 01/17/23 Stas Jiménez MD [address] [facility] [address], [place] [address] Surgeon Orthopedic Surgery 09/13/21 documented as of this encounter
--- OUTSIDE RECORDS SUMMARY | 2025-01-17 04:13 | XMS_ITS | Clinical Summary ---
Author Organization [employer] [facility] Address [address] [place] [address] Phone Care Team Providers Care Administration Internship Name Role Phone Unavailable Primary Care Provider [...] Encounters Date Type Department Care Team Description 01/12/2025 External Device Data STL ABSTRACTION Provider, Abstract 12/31/2024 10:50 AM CDT - 12/31/2024 11:59 PM CDT Hospital Encounter [facility] [address] [address] Stas Jiménez MD Discharge Disposition: Home or Self Care 11/16/2024 External Device Data STL ABSTRACTION Provider, [...] any time in the past [address] [facility], were you homeless or living in a alf (including now)? No 02/12/2021 Sex and Gender [...] 2016 INFLUENZA VACCINE (#1) 2024 COVID-19 Vaccine (3 - season) 11/15/202408/2021, 09/25/2021 DTAP/TDAP/TD VACCINES (2 - Td or Tdap) 01/16/2025 Procedures Procedure Name Priority Date/Time Associated Diagnosis Comments XR KNEE 4+ VW LEFT Routine 12/31/2024 11 :02 AM CDT Pain from Last 3 Months Results * XR KNEE 4+ VW LEFT (12/31/2024 11:02 AM CDT) Anatomical Region Laterality Modality Lower Extremity Computed Radiogr aphy 12/31/2024 11:0 2 AM CDT Impressions 12/31/2024 5:06 PM CDT IMPRESSION: 1. Minimal degenerative changes in the patellofemoral compartment. DICTATION LOCATION: Location 4 Narrative 12/31/2024 5:06 PM CDT XR KNEE 4+ VW LEFT DATE: 12/31/2024 11:02 AM HISTORY: Left knee pain. COMPARISON: None. EXAMINATION: Four views of the left knee. FINDINGS: There are postsurgical changes in the proximal tibia which is likely related to an ACL repair. No acute fracture. No dislocation. Minimal degenerative changes in the lateral aspect of the patellofemoral compartment. No identifiable bone lesion. No joint effusion. Soft tissues are normal. Procedure Note Héctor Sadler MD - 12/31/2024 XR KNEE 4+ VW LEFT DATE: 12/31/2024 11:02 AM HISTORY: Left knee pain. COMPARISON: None. EXAMINATION: Four views of the left knee. FINDINGS: There are postsurgical changes in the proximal tibia which is likely related to an ACL repair. No acute fracture. No dislocation. Minimal degenerative changes in the lateral aspect of the patellofemoral compartment. No identifiable bone lesion. No joint effusion. Soft tissues are normal. IMPRESSION: 1. Minimal degenerative changes in the patellofemoral compartment. DICTATION LOCATION: Location 4 Stas Jiménez MD DIAGNOSTIC IMAGING ORDERAB LES Final Result from Last 3 Months Insurance [employer] [facility] Cl[employer]ure CHOICE [facility] [employer] ACCESS Advance Directives For more information, please contact: [phone] * Full Code (Latest Code Status on File) Date Activated Date Inactivated Comments 02/11/2021 7:58 AM 02/12/2021 9:03 PM
--- OUTSIDE RECORDS SUMMARY | 2025-01-17 04:13 | XMS_ITS | Clinical Summary ---
Author Organization [facility] Address [address] [place] [address] Phone Care Team Providers Care Dry Wall Finisher Name Role Phone Stas Jiménez MD Unavailable [phone] Bradley Cook MD Primary Care Pro vider [...] daily 15 tablet 4 Active bismuth subcit F-vaexvJACGU-mu n (PYLERA) 140-125-125 mg per capsuleIndicati ons:Helicobacte [...] 04/22/2023 Assessment & Plan (04/22/2023 7:08 PM CARD MOUNTER): Moderately severe bloating. He was counseled about appropriate diet especially avoidance of consumption of excessive dairy products, segmental liver vegetables. Printed patient educational material was given. Was also advised to keep a food journal. Constipation 04/22/2023 Assessment & Plan (04/22/2023 7:10 PM CARD MOUNTER): Moderately severe constipation. May be IBS C versus CIC. He was counseled to augment water consumption. MiraLax 17 g b.i.d. is prescribed. He was advised to reduce it to once daily if he starts to have too many loose bowel movements daily. Check TSH. Hyperparathyroidism 12/31/2022 Mild intermittent asthma, uncomplicated 12/12/19 23 Non-alcoholic fatty liver disease 09/18/2022 Assessment & Plan (04/22/2023 7:04 PM CARD MOUNTER): Chronically mild elevated alkaline phosphatase (150). Denies [...] 09/18/2022 Assessment & Plan (04/22/2023 7:05 PM CARD MOUNTER): Likely due to fatty liver. Morbidly obese. [...] on file Legal Sex Male 11:19 AM CARD MOUNTER Gender Identity Male 04/17/2024 12:19 AM CARD MOUNTER Sexual Orientation Straight 04/17/2024 12 :19 AM CARD MOUNTER Last Filed Vital Signs Vital Sign Reading [...] 08/20/2022, 021 Medical Devices Implanted Type Area Sock Liner Device Identifier Shelf Expiration Date Model / Serial / Lot Lifenet Flexigraft 160mm Frozen Block Graft Soft Tissue Achilles Tendon Fatb - [id number] - [id number] Implanted:Qty: 1 on 09/13/2021 by Stas Jiménez MD at [facility] Graft Right: Knee Lifenet 11/22/2025 FATB / [id number] / [id number] [employer] [place] Suture 2-0 5 Juggerstitch Maxbraid Poly Strl Ltxfre [id number] - Sxxxx - [id number] Implanted:Qty: 1 on 09/13/2021 by Stas Jiménez MD at [facility] Other - see comments Right: Knee [employer] 07/26/2026 [id number] / [id number] / [id number] Description:SUTURE [employer] [place] Suture 2-0 5 Juggerstitch Maxbraid Poly Strl Ltxfre [id number] - Sxxxx - [id number] Implanted:Qty: 1 on 09/13/2021 by Stas Jiménez MD at [facility] Other - see comments Right: Knee [employer] 07/15/2025 [id number] / [id number] / [id number] Description:SUTURE [employer] Scp Accuport 11 Ga L120 Mm Side Delivery Cannula Kit Knee Substitute Bone Graft Sterile 414.502 - Sxxxx - [id number] Implanted:Qty: 1 on 09/13/2021 by Stas Jiménez MD at [facility] Other - see comments Right: Knee [employer] 07/21/2023 414.502 / XXXX / [id number] Description:KIT [employer] [place] Suture 2-0 5 Juggerstitch Maxbraid Poly Strl Ltxfre [id number] - Sxxxx - [id number] Implanted:Qty: 1 on 09/13/2021 by Stas Jiménez MD at [facility] Other - see comments Right: Knee [employer] 12/01/2025 [id number] / [id number] / [id number] Description:ANCHOR [employer] [place] Suture 2-0 5 Juggerstitch Maxbraid Poly Strl Ltxfre [id number] - Sxxxx - [id number] Implanted:Qty: 1 on 09/13/2021 by Stas Jiménez MD at [facility] Other - see comments Right: Knee [employer] 07/19/2026 [id number] / [id number] / [id number] Description:ANCHOR [employer] Screw Fastthread Biocomposite Interference 7mm X 20mm Ar-4020c-07 - Sxxxx - [id number] Implanted:Qty: 1 on 09/13/2021 by Stas Jiménez MD at [facility] Screw Right: Knee [employer] 02/13/2025 AR-4020C-07 / XXXX / [id number] [employer] Retroscrew 10mm 20mm Reconstruction Reverse Thread Design Tibia Az-4772bn-07 - Sxxxx - [id number] Implanted:Qty: 1 on 09/13/2021 by Stas Jiménez MD at [facility] Screw Right: Knee [employer] 02/14/2024 AR-1586RB-1 0 / XXXX / [id number] [employer] 6.5mm 30mm Depth José Miguel Step Drill Acl/Pcl Cancellous Groove Low Ar-1356 - Sxxxx - [id number] Implanted:Qty: 1 on 09/13/2021 by Stas Jiménez MD at [facility] Screw Right: Knee [employer] 07/14/2026 AR-1356 / XXXX / [id number] [employer] Implant Menicus Repair Fiberstitch Curved Ar-4570 - Sxxxx - [id number] Implanted:Qty: 1 on 09/13/2021 by Stas Jiménez MD at [facility] Right: Knee [employer] 02/13/2025 AR-4570 / XXXX / [id number] [employer] Implant Menicus Repair Fiberstitch Curved Ar-4570 - Sxxxx - [id number] Implanted:Qty: 1 on 09/13/2021 by Stas Jiménez MD at [facility] Right: Knee [employer] 03/16/2025 AR-4570 / XXXX / [id number] [employer] Screw Interference Antonina Ft Wedge Rnd Compositcp 7.0x30mm [id number] - [id number] Implanted:Qty: 1 on 07/03/2023 by Stas Jiménez MD at [facility] Left: Knee [employer] 03/17/2025 [id number] / / [id number] [employer] [place] Ventix Link Knotless 4.75mm Mach [id number] - [id number] Implanted:Qty: 1 on 07/03/2023 by Stas Jiménez MD at [facility] Left: Knee [employer] 08/14/2025 [id number] / / [id number] [employer] Screw Interference Antonina Th Wedge Briones Plla Cmpstcp 30 [id number] - [id number] Implanted:Qty: 1 on 07/03/2023 by Stas Jiménez MD at [facility] Left: Knee [employer] 02/14/2026 [id number] / / [id number] Lifenet Flexigraft 160mm Frozen Block Graft Soft Tissue Achilles Tendon Fatb - [id number] - [id number] Implanted:Qty: 1 on 07/03/2023 by Stas Jiménez MD at [facility] Left: Knee Lifenet 04/22/2028 FATB / [id number] / Procedures Procedure Name Priority Date/Time Associated Diagnosis Comments HEPATITIS PANEL, ACUTE Routine 08/20/2022 12:53 PM CDT Potential exposure to STD from Last 3 Months or Most Recently Relevant to Health Maintenance Results * Hepatitis panel, acute (08/20/2022 12:53 PM CDT) Hep A IgM Nonreactive Nonreactive [facility] Comment: Interpretive Data: If Hep A IgM Ab is reported as Equivocal, a new sample should be drawn in two weeks for testing. Current interpretive data was last revised on 19. Hep B core IgM Nonreactive Nonreactive [facility] Comment: Interpretive Data If HepB Core IgM Ab is reported as Equivocal, a new sample should be drawn in two weeks for testing. Current interpretive data was last revised on 19. Hep C Ab Nonreactive Nonreactive [facility] Comment: Interpretive Data Nonreactive: Antibodies [...] last revised on 2019. HepBsAg Nonreactive Nonreactive [facility] Blood 08/20/2022 12:5 3 PM CDT 08/20/2022 6:54 PM CDT Trung Ventura MD LAB MICROBIOLOGY - GENE [facility] ORDERABLES Final Result [facility] [address] Department [place] [address] from Last 3 Months or Most Recently Relevant to Health Maintenance Insurance [employer] ACCESS ANTHEM ACCESS Advance Directives For more information, please contact: [phone] * Full Code (Latest Code Status on File) Date Activated Date Inactivated Comments 06/10/2020 5:36 PM 06/20/2020 9:33 PM Care Teams Dry Wall Finisher Relationship Specialty Start Date End Date Bradley Cook MD [address] [place] [address] PCP - General Family Medicine 01/17/23 Stas Jiménez MD Surgeon Orthopedic Surgery 09/13/21
--- OUTSIDE RECORDS SUMMARY | 2025-01-17 04:13 | XMS_ITS | Clinical Summary ---
Author Organization [facility] Address [address] [facility] [place] [address] Care Team Providers Care Otorhinolaryngologist Name Role Phone Thierno Weber MD Unavailable [phone] Karlos Singh MD Primary Care Provider [phone] Source Comments [facility],non-owned Affiliates and Associated Physician Practices is amultiple site organization consisting of ambulatory clinics and hospital sitesin [place], [place], [place] and [place]. This disclosure is being madepursuant to the Care Everywhere program and may not contain all information available regarding this patient. Last updated 17.[facility] Allergies No known active allergies Medications * [...] Department Care Team Description 12/27/2024 Results Follow-Up [address] [address] Karlos Singh MD Results; Update 12/23/2024 11:30 AM CDT Office Visit [address] [address] Karlos Singh MD Prediabetes (Primary Dx); Class [...] 012 - 2017 Cigars Smokeless Tobacco: Never Tobacco Cessation:Counseling Given: [...] Sex Assigned at Male 03/11/2023 3:03 PM ADDING MACHINE SERVICER Legal Sex Male 6:39 AM ADDING MACHINE SERVICER Gender Identity Male 03/11/2023 3:03 PM ADDING MACHINE SERVICER Sexual Orientation Straight 03/11/2023 3: 03 PM ADDING MACHINE SERVICER 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 file Not on file Not [...] st Contact Info) Description 02/07/2025 8:20 AM ADDING MACHINE SERVICER Office Visit [facility] - [address] [place] [address] [place] [address] [place] [address] 03/03/2025 9:00 AM ADDING MACHINE SERVICER Office Visit [facility] - [place] [address] [place] [phone] [place] [address] [place] [address] 06/23/2025 11:20 AM CDT Office Visit [facility] - Family Medicine [address] [facility] [address] [place] [address] [place] [address] [facility] [address] [place] [address] Health Maintenance Due Date Last Done Comments HEPATITIS B VACCINE (1 of 3 - 19+ 3-dose series) 2008 HPV VACCINE (1 - 3-dose SCDM series) 2016 COVID-19 VACCINE (3 - 2024-2 6 season) 2024 12/20/2021, 09/25/2021 INFLUENZA VACCINE (#1) 2024 DTAP/TDAP/TD VACCINES (2 - T d or Tdap) 01/16/2025 01/16/2015 ZOSTER VACCINE (1 of 2) 2039 HEPATITIS C SCREENING Completed 12/11/2022 HIV SCREENING Completed 12/11/2022 DEPRESSION SCREENING Completed [...] Procedure Name Priority Date/Time Associated Diagnosis Comments VITAMIN D 1,25 DIHYDROXY Routine 12/24/2024 11:47 AM CDT Vitamin D deficiency IRON + TIBC + FERRITIN Routine 12/24/2024 [...] - 12/25/2024 8:11 AM CDT Performed at: - [address] [id number] Shipping Point Inspector: Isaiah Ramos PhD, Phone: [phone] Karlos Singh MD LAB - CHEMISTRY ORDERABLES Final Result Performing Organization Address City/State/[facility] Co de Phone Number [facility] ACCOUNT [facility] [address] [place] [address] * VITAMIN D 1,25 DIHYDROXY (12/24/2024 11:47 AM CDT) Calcitriol (1,25 di-OH Vit D) 41.9 24.8 - 81.5 pg/mL [facility] ACCOUNT BILL Blood BLOOD SPECIMEN / Unknown 12/24/2024 11:47 AM CDT 12/24/2024 Narrative [facility] ACCOUNT BILL - 12/27/2024 1:09 PM CDT Performed at: [address] [id number] Shipping Point Inspector: John Moncada MD, Phone: [phone] Karlos Singh MD LAB - CHEMISTRY ORDERABLES Final Result [facility] ACCOUNT BILL [address] [place] [address] * VITAMIN B12 FOLATE PANEL (12/24/2024 11:47 AM CDT) [facility] Vitamin B12 447 213 - 816 pg/mL [facility] ACCOUNT BILL Folate 10.7 7.0 - 31.4 ng/mL [facility] ACCOUNT BILL Blood BLOOD SPECIMEN / Unknown 12/24/2024 11:47 AM CDT 12/24/2024 Narrative [facility] ACCOUNT BILL - 12/24/2024 5:10 PM CDT Performed at: [address] [place] [id number] Shipping Point Inspector: Angelo Hernandez [facility], Phone: [phone] us Karlos Singh MD LAB - CHEMISTRY ORDERABLES Final Result [facility] ACCOUNT BILL [address] [place] [address] * HEMOGLOBIN A1C - POINT OF CARE (AMB) (12/23/2024 1:44 PM CDT) [facility] Hemoglobin A1c POCT 6.1 % [facility] Expiration Date 06/20/2026 [facility] Lot # [id number] [facility] QC Verified Yes Yes [facility] Blood BLOOD SPECIMEN / Unknown 12/23/2024 1:44 PM CDT us Karlos Singh MD LAB - POINT OF CARE ORDERAB LES Final Result [facility] [place] [address] [facility] [address] [place] [address], [facility] [phone] * HIV-1 HIV-2 ANTIBODY + HIV P24 AG PANEL (12/11/2022 10:17 AM CDT) [facility] HIV Screen 4th Generation w Reflex Non Reactive Non Reactive [facility] INSURANCE BILL Comment: HIV Negative HIV-1/HIV-2 antibodies and HIV-1 p24 antigen were NOT detected. There is no laboratory evidence of HIV infection. FASTING Blood BLOOD SPECIMEN / Unknown 12/11/2022 10:17 AM CDT 12/11/2022 Narrative Resulting Agency Comment Lab Testing performed at: [address] [id number] Bradley Cook MD LAB - CHEMISTRY ORDERABLES Fi nal Result Performing Organization Address [facility]/ZIP Co de Phone Number [facility] INSURANCE BILL [address] [place] [address] * HEPATITIS C ANTIBODY (12/11/2022 10:17 AM CDT) [facility] Hepatitis C Antibody Non Reactive Non Reactive [...] Resulting Agency Comment Lab Testing performed at: [address] [id number] Bradley Cook MD LAB - CHEMISTRY ORDERABLES Fi nal Result Performing Organization Address [facility] Co de Phone Number [facility] INSURANCE BILL [address] [place] [address] from Last 3 Months or Most Recently Relevant to Health Maintenance Insurance [employer] Advance Directives * Full Code (Latest Code Status on File) Date Activated Date Inactivated Comments 06/06/2016 1:48 PM 06/06/2016 8:07 PM * Full Code Date Activated Date Inactivated Comments 06/06/2016 12:15 PM 06/06/2016 1:48 PM Care Teams Otorhinolaryngologist Relationship Specialty [place] [address] [phone] PCP - General Internal Medicine 12/23/24 [place] [address] [facility] [address] [place] [address] Physical Medicine and Rehabilitation 07/06/24
--- OUTSIDE RECORDS SUMMARY | 2025-01-17 04:13 | XMS_ITS | Encounter Summary ---
Author Organization [facility] Address [address] [place] [address] Phone Care Team Providers Care Die Equipment Operator Name Role Phone No, Physician Primary Care Provider [phone] Trung Ventura MD Primary Care Provider Stas Jiménez MD Unavailable [phone] Bradley Cook MD Primary Care Pro vider Encounter Details Date Type Department Care Team (Late st Contact Info) Description 06/11/2020 Ophth Exam [facility] Medicine Ophthalmology [address] [place] [address] 1st [place] [phone] Jesse uSe MD [address] [facility] [phone] [place] [address] Social History Tobacco Use Types Packs/Day Years Used Date Smoking Tobacco: Every Day Cigarettes 0.3 15 Cigars Sex and Gender Information Value Date Recorded Sex Assigned at Not on file Legal Sex Male 11:19 AM AUTO MECHANIC APPRENTICE Gender Identity Male 04/17/2024 12:19 AM AUTO MECHANIC APPRENTICE Sexual Orientation Straight 04/17/2024 12 :19 AM AUTO MECHANIC APPRENTICE documented as of this encounter Plan of [...] yuli ctive Lens Clear Clear Care Teams Die Equipment Operator Relationship Specialty Start Date End Date No, Physician PCP - General 06/10/20 08/19/21 Trung Ventura MD [address] [facility] [address], [place] [address] PCP - General Family Medicine 08/20/21 01/16/23 Bradley Cook MD [address] [place] [address] PCP - General Family Medicine 01/17/23 Stas Jiménez MD [address] [facility] [address] [place] [address] Surgeon Orthopedic Surgery 09/13/21 documented as of this encounter
--- OUTSIDE RECORDS SUMMARY | 2025-01-17 04:13 | XMS_ITS | Encounter Summary ---
Author Organization [facility] Address [address] [facility] [place] [address] Care Team Providers Care Varnishing Machine Operator Name Role Phone Thierno Weber MD Unavailable Karlos Singh MD Primary Care Provider [phone] Reason for Visit * Reason Onset Date Comments Results 12/27/2024 Update 12/27/2024 Encounter Details Date Type Department Care Team (Late st Contact Info) Description 12/27/2024 Results Follow-Up [facility] - Family Medicine [id number] [place] [address] [address] [place] [address] [place] [address] [facility] [address] [place] [address] Results; Update Social History Tobacco Use Types Packs/Day Years [...] Sex Assigned at Male 03/11/2023 3:03 PM PROPERTY UTILIZATION OFFICER Legal Sex Male 6:39 AM PROPERTY UTILIZATION OFFICER Gender Identity Male 03/11/2023 3:03 PM PROPERTY UTILIZATION OFFICER Sexual Orientation Straight 03/11/2023 3: 03 PM PROPERTY UTILIZATION OFFICER 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 Not on file Not on file Not on file documented as of this encounter Plan of Treatment Upcoming Encounters Date Type Department Care Team (Late st Contact Info) Description 02/07/2025 8:20 AM PROPERTY UTILIZATION OFFICER Office Visit [facility] - [address] [place] [address] [place] [address] [facility] [address] [place] [address] 03/03/2025 9:00 AM PROPERTY UTILIZATION OFFICER Office Visit [facility] [address] [place] [address] [place] [address] [facility] [address] [place] [address] 06/23/2025 11:20 AM CDT Office Visit [facility] [address] [facility] [address] [place] [address] [place] [address] [facility] [address] [place] [address] documented as of this encounter Visit Diagnoses Not on filedocumented in this encounter Care Teams Varnishing Machine Operator Relationship Specialty [place] [address] [facility] [address] [place] [address] PCP - General Internal Medicine 12/23/24 [place] [address] [facility] [address] [place], [place] [id number] Physical Medicine and Rehabilitation 07/06/24 documented as of this encounter
--- OUTSIDE RECORDS SUMMARY | 2025-01-17 04:13 | XMS_ITS | Encounter Summary ---
Author Organization [facility] Address [address] [facility] [place] [address] Care Team Providers Care Relay Telegrapher Name Role Phone No, Physician Primary Care Provider [phone] Trung Ventura MD Primary Care Provider Stas Jiménez MD Unavailable [phone] Bradley Cook MD Primary Care Pro vider Encounter Details Date Type Department Care Team (Latest Contact Info) Description 06/10/2020 Ophth Exam Ophthalmology Esperanza Shepherd MD [address] [place], [place] [id number] Social History Tobacco Use Types Packs/Day Years Used Date Smoking Tobacco: Every Day Cigarettes 0.3 15 Cigars Sex and Gender Information Value Date Recorded Sex Assigned at Not on file Legal Sex Male 11:19 AM [employer] SALES AGENT Gender Identity Male 04/17/2024 12:19 AM [employer]BER[employer] SALES AGENT Sexual Orientation Straight 04/17/2024 12 :19 AM [employer] MEMBER[employer] SALES AGENT documented as of this encounter Plan of [...] superiorly, none in posterior pole Care Teams Relay Telegrapher Relationship Specialty Start Date End Date No, Physician PCP - General 06/10/20 08/19/21 Trung Ventura MD [address] [facility] [address] [place] [address] PCP - General Family Medicine 08/20/21 01/16/23 Bradley Cook MD [address] [place] [address] PCP - General Family Medicine 01/17/23 Stas Jiménez MD [address] [facility] [address] [place] [address] Surgeon Orthopedic Surgery 09/13/21 documented as of this encounter
--- OUTSIDE RECORDS SUMMARY | 2025-01-17 04:13 | XMS_ITS | Encounter Summary ---
Author Organization [facility] Healthcare Address [address] [place] [address] Care Team Providers Care Parimutuel Cashier Name Role Phone No, Physician Primary Care Provider [phone] Trung Ventura MD Primary Care Provider Stas Jiménez MD Unavailable [phone] Bradley Cook MD Primary Care Pro vider Encounter Details Date Type Department Care Team (Latest Contact Info) Description 06/15/2020 Ophth Exam Ophthalmology Zarina Perez MD [address] [facility] [address] [place], [place] [id number] Social History Tobacco Use Types Packs/Day Years Used Date Smoking Tobacco: Every Day Cigarettes 0.3 15 Cigars Sex and Gender Information Value Date Recorded Sex Assigned at Not on file Legal Sex Male 11:19 AM MANAGEMENT AIDE Gender Identity Male 04/17/2024 12:19 AM MANAGEMENT AIDE Sexual Orientation Straight 04/17/2024 12 :19 AM MANAGEMENT AIDE documented as of this encounter Plan of [...] hemorrhages, no exdua rosalinda Normal Care Teams Parimutuel Cashier Relationship Specialty Start Date End Date No, Physician PCP - General 06/10/20 08/19/21 Trung Ventura MD [facility] [facility] [address] [place] [address] PCP - General Family Medicine 08/20/21 01/16/23 Bradley Cook MD [address] [place] [address] PCP - General Family Medicine 01/17/23 Stas Jiménez MD [address] [facility] [address] [place] [address] Surgeon Orthopedic Surgery 09/13/21 documented as of this encounter
--- NOTE | 2025-01-17 05:48 | ED.BACK ---
HPI - Back Pain/Injury General Chief Complaint: Back Pain/Injury Stated Complaint: BACK PAIN X 2D Time Seen by Provider: 01/17/25 05:18 History of Present Illness HPI Narrative: 34-year-old male with history of peptic ulcer disease presenting to the emergency department with upper thoracic back pain and left-sided scapular pain. States he has had injuries therefore and previous is told was secondary to dehydration. No surgeries. States he has tried topical lidocaine and oral Tylenol with improvement but pain recurs. Trying topical massage was with some improvement. No other pain and pain is not exacerbated by movement or exertion. No midline back pain or contralateral right-sided back pain. No low back pain. No traumatic injuries recently. Related Data Allergies Allergy/AdvReac Type Severity Reaction Status Date / Time NSAIDS (Non-Steroidal AdvReac Ulcers Verified 01/17/25 04:11 Anti-Inflamma Review of Systems Review of Systems: As reviewed above in HPI [facility] Past Medical History Medical History Healthy adult male Surgical History Surgical History No pertinent past surgical history Exam Narrative: GENERAL: [Well-appearing, well-nourished, and in no acute distress.] HEAD: [Normocephalic, atraumatic.] EYES: [PERRLA and EOMI.] ENT: Nares clear, no rhinorrhea or epistaxis. Mucous membranes moist. NECK: Supple. CHEST: Clear to auscultation. No respiratory distress. Posterior scapular tenderness near the midline spine without any step-offs deformities. No overlying skin deformity or discoloration. HEART: [Regular rate and rhythm]. No murmur heard. [Normal peripheral pulses.] ABDOMEN: [Soft, nondistended], [nontender], [No rigidity or guarding] EXTREMITIES: Normal range of motion. No extremity edema. Normal range of motion of the extremities did not elicit any pain. Ambulatory. SKIN: Warm, dry, no rash. NEURO: [No focal deficits]. Alert and oriented [x3.] PSYCH: [Normal mood and affect.] Course Vital Signs Vital signs: Vital Signs Pulse Rate 82 01/17/25 06:10 Respiratory Rate 16 01/17/25 06:10 Blood Pressure 128/80 11/03/25 06:10 Pulse Oximetry 100 01/17/25 06:10 Pulse Rate 82 01/17/25 06:10 Respiratory Rate 16 01/17/25 06:10 Blood Pressure 128/80 01/17/25 06:10 Pulse Oximetry 100 01/17/25 06:10 MDM - Back Pain/Injury MDM Narrative Medical decision making narrative: 34-year-old male with history of peptic ulcer disease presenting to the emergency department with upper thoracic back pain and left-sided scapular pain. States he has had injuries therefore and previous is told was secondary to dehydration. No surgeries. States he has tried topical lidocaine and oral Tylenol with improvement but pain recurs. Trying topical massage was with some improvement. No other pain and pain is not exacerbated by movement or exertion. No midline back pain or contralateral right-sided back pain. No low back pain. No traumatic injuries recently. Posterior scapular tenderness near the midline spine without any step-offs deformities. No overlying skin deformity or discoloration. Patient has normal vital signs and symptoms consistent with musculoskeletal back/thoracic scapular pain. Given Robaxin Tylenol and tramadol and re-evaluated. No indications for advanced imaging at this time. Basic laboratory studies obtained as patient thinks he is in dehydrated causing some of his symptoms. No leukocytosis or anemia. Normal platelet count. Electrolytes are all normal. No renal dysfunction. Normal glucose. Patient re-evaluated and felt significant improvement. Will be discharged home with a combination regimen for his back pain and safe for discharge at this time. Medical Records Attestation: I reviewed the patient's medical records. Lab Data Attestation: I reviewed the patient's lab results. 01/17/25 06:42 01/17/25 06:42 Labs: Lab Results 01/17/25 Range/Units 06:42 WBC 9.7 (4.5-10.0) K/mm3 RBC 5.20 (4.6-6.20) M/mm3 Hgb 14.2 (14.0-18.0) g/dL Hct 44.0 (42.0-52.0) % MCV 84.6 (80-100) fl MCH 27.3 (26-34) pg MCHC 32.3 (32-36) g/dl RDW 13.2 (11.5-14.5) % Plt Count 286 (150-375) k/mm3 MPV 10.3 (7.4-10.4) fl Immature Gran % (Auto) 0.5 (0-0.5) % Neut % (Auto) 60.6 (45.5-73.1) % Lymph % (Auto) 25.9 (18.3-44.2) % [place] % (Auto) 9.0 H (2.6-8.5) % Eos % (Auto) 3.6 (0-4.4) % Baso % (Auto) 0.4 (0.2-1.2) % Lymph # (Auto) 2.50 (0.9-3.2) K/mm3 [place] # (Auto) 0.9 H (0.1-0.6) K/mm3 Eos # (Auto) 0.4 H (0-0.3) K/mm3 Baso # (Auto) 0.0 (0.0-0.1) K/mm3 Abs Immat Gran (auto) 0.05 H (0.00-0.031) K/mm3 Absolute Neuts (auto) 5.9 (1.3-6.7) K/mm3 Absolute Nucleated RBC 0.000 (0.0-0.012) K/mm3 Nucleated RBC % 0.0 (0.0-0.2) % Sodium 135 L (137-145) mmol/L Potassium 4.2 (3.4-5.0) mmol/L Chloride 101 (98-107) mmol/L Carbon Dioxide 26 (22-30) mmol/L Anion Gap 8 (4-12) mmol/L BUN 17 (9-20) mg/dL Creatinine 1.09 (0.7-1.3) mg/dL Estim Creat Clear Calc 123 ml/min Estimated GFR > 60 (59 - ) Glucose 112 H (65-110) mg/dL Calcium 9.1 (8.4-10.2) mg/dL Discharge Plan Discharge Clinical Impression: Spasm of thoracic back muscle Patient Disposition: Home Condition: Stable Instructions: Antibiotic Form, Thoracic Back Strain (ED) Additional Instructions: All of your laboratory studies are normal. No signs of dehydration or infection. Normal electrolytes. We will send you home with a combination medications to try for your back pain and spasm. Follow-up with your primary doctor. Return with any emergencies Patient Language: Swazi Prescriptions: New tramadol 50 mg tablet 50 mg PO Q6H PRN (Reason: pain) Qty: 14 0RF methocarbamol 750 mg tablet 750 mg PO TID PRN (Reason: pain) Qty: 20 0RF lidocaine 5 % adhesive patch,medicated 1 patch topical DAILY Qty: 15 0RF Rx Instructions: leave on most painful area for up to 12 hrs No Action doxycycline hyclate 100 mg capsule 100 mg PO BID 7 Days Qty: 14 0RF Follow-up/Referrals: UNKNOWN,DOCTOR [Primary Care Provider] Time of Disposition: 07:17
[2025-01-17] MEDS: ACETAMINOPHEN 500 MG TABLET 1000 MG PO (06:03)
[2025-01-17] MEDS: traMADol HCL (*CRX) 50 MG TABLET PO (06:03)
[2025-01-17 06:10] VITALS: BP 128/80; PULSE 82; RESP 16; O2SAT 100
[2025-01-17 06:50] LABS: Hematocrit 44.0 % (42.0-52.0); Hemoglobin 14.2 g/dL (14.0-18.0); Immature Granulocyte Percent A 0.5 % (0-0.5); Lymphocytes Absolute Auto 2.50 K/mm3 (0.9-3.2); Mean Corpuscular HGB Conc 32.3 g/dl (32-36); Mean Corpuscular Hemoglobin 27.3 pg (26-34); Mean Corpuscular Volume 84.6 fl (80-100); Nucleated Red Blood Cells Absolute Auto 0.000 K/mm3 (0.0-0.012); Nucleated Red Blood Cells Perc 0.0 % (0.0-0.2); Platelet Count Result 286 k/mm3 (150-375); Red Blood Count 5.20 M/mm3 (4.6-6.20); White Blood Count 9.7 K/mm3 (4.5-10.0)
[2025-01-17 07:09] LABS: Anion Gap 8 mmol/L (4-12); Blood Urea Nitrogen 17 mg/dL (9-20); Calcium 9.1 mg/dL (8.4-10.2); Carbon Dioxide 26 mmol/L (22-30); Chloride 101 mmol/L (98-107); Estimated CRCL calculation 123 ml/min; Estimated Glomerular Filt Rate > 60; Glucose 112 mg/dL (65-110); Potassium 4.2 mmol/L (3.4-5.0); Sodium 135 mmol/L (137-145)
[2025-01-17 07:35] VITALS: BP 135/70; PULSE 76; RESP 18; O2SAT 100
== END 2025-01-17 07:42 | disposition home or self-care (01) ==
PROVIDERS: Emergency Provider Student in an Organized Health Care Education/Training Program
DX: M62.830 Muscle spasm of back (principal)
CPT/HCPCS: 36415; 80048; 85025; 99283; A9270